=== PATIENT | female | born 1945 | race Caucasian/White ===

== ENCOUNTER 2022-06-24 07:52 | Outpatient (CLI) | payer MEDICARE, OTHER, SELFPAY | END 2022-06-24 07:53 | disposition home or self-care (01) | LOC: AMB 07-05 18:46 | PROVIDERS: PCP Family Medicine; Visit Provider Family Medicine | DX: S79.911A Unspecified injury of right hip, initial encounter (principal); W18.30XA Fall on same level, unspecified, initial encounter; Y92.009 Unspecified place in unspecified non-institutional (private) residence as the place of occurrence of the external cause | CPT/HCPCS: A0425; A0427 ==

== ENCOUNTER 2022-06-24 08:34 | Emergency (ER) | payer MEDICARE, OTHER, SELFPAY ==
[2022-06-24 08:38] VITALS: BP 132/76; PULSE 72; RESP 18; TEMP 36.5; O2SAT 93; BMI 26.3
--- NOTE | 2022-06-24 09:09 | CRLHL7_ITS ---
For Patients: As a result of the Century Cures Act, medical imaging exams and procedure reports are released immediately into your electronic medical record. You may view this report before your referring provider. If you have questions, please contact your health care provider. INDICATION: Fall. TECHNIQUE: Noncontrast CT images acquired through the brain. COMPARISON: None. FINDINGS: Prominence of the ventricles and sulci compatible with mild diffuse cerebral volume loss. No mass effect or midline shift. The healy-white differentiation is maintained. No acute intracranial hemorrhage or pathologic extra-axial fluid collection. Scattered hypoattenuation in the supratentorial white matter, suggestive of mild chronic microvascular ischemic changes. Intracranial atherosclerotic calcifications. The globes are symmetric. The calvarium is intact. Mild mucosal thickening in the visualized paranasal sinuses. The mastoid air cells are clear. IMPRESSION: No acute intracranial hemorrhage or mass effect. Please note that all CT scans at this facility use dose modulation, iterative reconstruction, and/or weight-based dosing when appropriate to reduce radiation dose to as low as reasonably achievable. Dictated by Miguel Ángel Ashby MD @ 06/24/2022 9:42:33 AM (Electronically Signed)
--- NOTE | 2022-06-24 09:09 | CRLHL7_ITS ---
For Patients: As a result of the Century Cures Act, medical imaging exams and procedure reports are released immediately into your electronic medical record. You may view this report before your referring provider. If you have questions, please contact your health care provider. INDICATION: Fell. TECHNIQUE: AP view of the pelvis, 2 images. COMPARISON: None. FINDINGS: Right total hip arthroplasty. Prosthetic components well-seated and aligned. No fracture or dislocation/diastasis. IMPRESSION: Negative for acute traumatic abnormality. Dictated by Sha Aguirre MD @ 06/24/2022 10:04:09 AM (Electronically Signed)
--- NOTE | 2022-06-24 09:10 | ED_ITS ---
HPI - General Adult General Chief complaint: Hip Injury/Pain Stated complaint: hip pain Time Seen by Provider: 06/24/22 08:58 History of Present Illness HPI narrative: This 77-year-old female comes in by ambulance because of a fall that occurred a couple days ago. She fell down onto her buttocks and did hit her head. She did not have loss of consciousness. She has had persistent pain in her buttocks bilaterally since then. She states that she has been able to ambulate with some difficulty while using a walker. She is not on any blood thinners. Related Data Home Medications Medication Instructions Recorded Confirmed albuterol sulfate 90 mcg/actuation inhalation 06/24/22 aerosol inhaler alendronate 70 mg tablet mg PO 06/24/22 levothyroxine 88 mcg tablet mcg 06/24/22 pravastatin 40 mg tablet mg 06/24/22 Previous Rx's Medication Instructions Recorded hydrocodone 5 mg-acetaminophen 325 1 tab PO Q4-6H PRN pain #20 tabs 06/24/22 mg tablet Allergies Allergy/AdvReac Type Severity Reaction Status Date / Time No Known Drug Allergies Allergy Verified 06/24/22 08:42 Review of Systems Status of ROS: Reports: 10 or more systems reviewed and unremarkable except as noted in History and below Narrative: Constitutional: No fevers, no weight gain or loss. Eyes: No discharge. No vision changes. HENT: No congestion, no sore throat, no ear pain. Cardiovascular: No chest pain, no palpitations. Respiratory: No shortness of breath, no wheezes, no cough. Gastrointestinal: No abdominal pain, no vomiting, no diarrhea. Genitourinary: No dysuria, no hematuria. Musculoskeletal: Bilateral buttock pain. Skin: No rashes, no pruritis. Neurological: No dizziness, weakness, sensory change, speech change. Endo/Heme/Allergies: No bruising or bleeding. No polydipsia. Pysch: no suicidality, no anxiety, no insomnia. All other systems reviewed and are negative. PFSH PFSH Social History Smoking Status: Never smoker Do you use any of these nicotine containing products: None How often do you have a drink containing alcohol: never AUDIT-C Alcohol total score: 0 Non-prescribed substance use: denies use Exam Narrative: Exam Narrative: Constitutional: Well-developed, well-nourished, no acute distress. HEENT: Normocephalic, atraumatic. Neck: Normal range of motion. Nontender. Supple. Heart: Regular. No murmurs. Normal rate. Intact distal pulses. Lungs: Clear to auscultation. No chest discomfort. No wheezes, rhonchi, or rales. Abdomen: Normal bowel sounds. Nontender. No rebound tenderness. Genitalia: Deferred. Back: No midline tenderness. Normal range of motion. Extremities: No distinct pain when stressing the pelvis. No pain when log- rolling either leg. She has difficulty raising either leg from the bed due to pain. Skin: Intact. No rash. Warm. No erythema or pallor. Neurologic: No altered sensation. No weakness. Alert and oriented. Psychiatric: No suicidality. No anxiety or depression. No insomnia. Nursing notes and vitals signs are reviewed. Const: Vital Signs, click to edit/add: Vital Signs - 24 hr 06/24/22 08:38 Temperature 97.7 F Pulse Rate [Right Pulse Oximeter] 72 Respiratory Rate 18 Blood Pressure [Ri ght Upper Arm] 132/76 Pulse Oximetry 93 Oxygen Delivery Me thod Room Air Course Vital Signs Vital signs: Initial Vital Signs Temperature 97.7 F 06/24/22 08:38 Temperature Source Temporal Artery Scan 06/24/22 08:38 Pulse Rate 72 06/24/22 08:38 Respiratory Rate 18 06/24/22 08:38 Blood Pressure 132/76 06/24/22 08:38 Blood Pressure Mean 94 06/24/22 08:38 Blood Pressure Position Supine 06/24/22 08:38 Pulse Oximetry 93 06/24/22 08:38 Oxygen Delivery Method 06/24/22 08:38 Vital Signs Temperature 97.7 F 06/24/22 08:38 Pulse Rate 72 06/24/22 08:38 Respiratory Rate 18 06/24/22 08:38 Blood Pressure 132/76 06/24/22 08:38 Pulse Oximetry 93 06/24/22 08:38 Oxygen Delivery Method 06/24/22 08:38 Temperature 97.7 F 06/24/22 08:38 Pulse Rate 72 06/24/22 08:38 Respiratory Rate 18 06/24/22 08:38 Blood Pressure 132/76 06/24/22 08:38 Pulse Oximetry 93 06/24/22 08:38 Oxygen Delivery Method 12/10/22 08:38 Medical Decision Making MDM Narrative Medical decision making narrative: This patient fell a couple days ago and has been able to ambulate but does so with some difficulty and with the assistance of a walker. She does have a right hip replacement. She also did hit her head but did not have loss of consciousness. She is not complaining of headache and does not have any neurologic deficit. CT imaging of the head returns with no acute findings. X- ray imaging of her pelvis also shows no acute fracture or sign of dislocation. Her hip replacement on the right appears to be intact without any compromise. The patient did receive an IV dose of morphine 2 mg. This helped her with pain but she was feeling somewhat lightheaded. Eventually she was able to get up and ambulate to the bathroom with the assistance of a walker. She is okay to return home. She has a walker at home and her can help her as needed. She received a prescription for some tablets of [place]. I advised her to return if not improving or worsening symptoms happen. Imaging Data CT scan - head: Radiologist's impression: No acute intracranial hemorrhage or mass effect. XR Pelvis: Radiologist's impression: Right total hip arthroplasty. Prosthetic components well-seated and aligned. No fracture or dislocation/diastasis. Discharge Plan Discharge Clinical Impression: Contusion of pelvic region Patient Disposition: Home w/ Parent or Adult Condition: Stable Additional Instructions: Take medication as needed and indicated. Follow up with primary physician or return if worsening symptoms happen. Prescriptions: New hydrocodone-acetaminophen 5-325 mg tablet 1 tab PO Q4-6H PRN (Reason: pain) Qty: 20 0RF No Action pravastatin 40 mg tablet Label Comments: Take 1 Tablet (40 mg) by mouth at bedtime. Take with 20 mg tablet for total of 60 mg at bedtime. alendronate 70 mg tablet PO Label Comments: Take 1 Tablet (70 mg) by mouth once a week in the morning. TAKE ON EMPTY STOMACH WITH FULL GLASS OF WATER. DO NOT LIE DOWN FOR 1 HOUR. levothyroxine 88 mcg tablet Label Comments: TAKE ONE TABLET BY MOUTH ONE TIME DAILY albuterol sulfate 90 mcg/actuation HFA aerosol inhaler INHALATION Label Comments: INHALE 2 PUFFS BY MOUTH EVERY 4 HOURS IF NEEDED FOR SHORTNESS OF BREATH Follow Up/Referrals: Ksenia Monaco MD [Primary Care Provider] - Stand Alone Forms: [facility] Info Instructions
[2022-06-24] MEDS: MORPHINE 2 MG/ML inj IVP (09:45)
[2022-06-24 10:00] VITALS: BP 115/98; PULSE 58; RESP 18; O2SAT 95
--- NOTE | 2022-06-24 10:05 | ED.NURSE ---
noted to desat when sleeping. 02 applied.
--- NOTE | 2022-06-24 11:00 | ED.NURSE ---
attempted to stand/ambulate. pt states she is dizzy and hungry. will feed toast and try again
[2022-06-24 11:45] VITALS: PULSE 62; RESP 18; O2SAT 93
== END 2022-06-24 12:09 | disposition home or self-care (01) ==
PROVIDERS: Emergency Provider Emergency Medicine Emergency Medical Services; PCP Family Medicine
DX: S30.0XXA Contusion of lower back and pelvis, initial encounter (principal); W19.XXXA Unspecified fall, initial encounter
CPT/HCPCS: 70450; 72170; 96374; 99284; 99285; J1170; J2270

== ENCOUNTER 2022-09-05 08:30 | Outpatient (RCR) | payer MEDICARE, OTHER, SELFPAY | END 2022-09-22 15:25 | disposition home or self-care (01) | PROVIDERS: PCP Family Medicine; Visit Provider Podiatrist | DX: Q66.00 Congenital talipes equinovarus, unspecified foot (principal); Z51.89 Encounter for other specified aftercare | CPT/HCPCS: 97110; 97112; 97140; 97162 ==

== ENCOUNTER 2023-04-21 08:05 | Emergency (ER) | payer MEDICARE, OTHER, SELFPAY ==
[2023-04-21 08:20] VITALS: BP 132/66; PULSE 69; RESP 20; TEMP 36.3; O2SAT 92; BMI 26.3
--- NOTE | 2023-04-21 08:35 | ED.GENADULT ---
HPI - General Adult General Time Seen by Provider: 08:35 Date Seen: 04/21/23 Chief complaint: Extremity Pain/Injury, Lower Stated complaint: pain L leg, trouble walking Time Seen by Provider: 04/21/23 08:35 Source: patient and RN notes reviewed Mode of arrival: ambulatory Limitations: no limitations History of Present Illness HPI narrative: This 78-year-old female is coming in with significant pain behind the left knee. This is to the point where she cannot walk, has difficulty straightening or fully flexing the knee. This started last night when she attempted to get up from sitting at dinner. They were out to dinner and she just went to get up and had severe pain in the knee. She endorses some underlying pain in both calfs periodically, more in the muscles. This was different, she has never felt anything like this. She has not had any associated chest pain or respiratory symptoms such as shortness of breath. No fevers, no trauma. She points to the pain being isolated behind the left knee. She is not aware of any arthritis in the knee. She has not really had any baseline pain in this knee. This just hit suddenly when attempting to stand last night. She could find a position of comfort with the leg elevated in pillows supporting behind the left knee and calf. No numbness tingling. She did come in on crutches. Related Data Home Medications Medication Instructions Recorded Confirmed albuterol sulfate 90 mcg/actuation inhalation 06/24/22 aerosol inhaler alendronate 70 mg tablet mg PO 06/24/22 levothyroxine 88 mcg tablet mcg 06/24/22 pravastatin 40 mg tablet mg 06/24/22 Previous Rx's Medication Instructions Recorded hydrocodone 5 mg-acetaminophen 325 1 tab PO Q4-6H PRN pain #20 tabs 06/24/22 mg tablet Allergies Allergy/AdvReac Type Severity Reaction Status Date / Time No Known Drug Allergies Allergy Verified 06/24/22 08:42 Review of Systems Narrative: As per HPI. PFS PFS Social History Smoking Status: Never smoker Do you use any of these nicotine containing products: None Second hand tobacco smoke exposure: No How often do you have a drink containing alcohol: monthly or less How many standard drinks containing alcohol do you have on a typical day: 1 or 2 How often do you have six or more drinks on one occasion: Never AUDIT-C Alcohol total score: 1 Non-prescribed substance use: denies use service: No Exam Const: Vital Signs, click to edit/add: Vital Signs - 24 hr 04/21/23 08:20 Temperature 97.4 F L Pulse Rate [Pulse Oximeter] 69 Respiratory Rate 20 Blood Pressure [Ri ght Upper Arm] 132/66 Pulse Oximetry 92 Oxygen Delivery Me thod Room Air This 78-year-old female is seen in exam room 3, is lying in the bed with pillows supporting her left lower extremity behind the knee and calf, elevating it. She is alert, interactive, no apparent distress. Able to speak in complete sentences, face atraumatic, sclera clear, conjugate gaze. Lungs are clear anteriorly, no tachypnea or respiratory symptoms noted. CV regular rate and rhythm no murmur. Both lower extremities are visualize, no edema, no erythema. She has ability to straight leg raise this left leg. Knee joint palpates intact and is nontender, feel no effusion. Patella is in alignment, she has pain if I attempt to fully extend or with flexion. She feels it more posteriorly in the popliteal fossa. I do not feel popliteal fossa low mass on palpation and she is not necessarily tender when I palpate the popliteal fossa. Calves are nontender bilaterally. Documenting provider has reviewed patient's vital signs: yes Course Course ED Course: Reviewed with patient things such as Julian's cyst, atraumatic cartilage tears that can happen with aging in the knee. We will proceed with venous ultrasound, x-ray of this left knee. This certainly seems to be something within the musculoskeletal architecture of the knee or within the popliteal fossa. This does not seem to be referred process based on my examination. At this time she is comfortable, does not need anything for pain if she has is resting and not trying to ambulate. Reevaluation(s) Time of Reevaluation #1: 10:45 Reevaluation #1: Initially was in to talk to patient about her results. Was able to tell her the ultrasound was negative for DVT, x-ray showing significant medial joint arthritis. It is my a presumption that she probably has a degenerative cartilage tear that is causing acute pain. I did have to leave to take a phone call for another patient from a customer service and sales consultant. I did go back right away after that. We are going to put a knee immobilizer on her and see if she ambulates better with it. Staff did already have this in place, it does bother her resting posteriorly to have the leg straight in the knee immobilizer. We do not have a hinged knee immobilizer here. We are going to see if the knee immobilizer helps her with weight-bearing at all, if it does not, will just do crutches and have her follow up with Orthopedics. If the knee immobilizer does help with ambulation, will use the knee immobilizer when she is up and ambulating but otherwise can take off when she is resting. Time of Reevaluation #2: 10:56 Reevaluation #2: Unfortunately the knee immobilizer causes patient more pain than she was having with ambulation. Will have her just use crutches. Vital Signs Vital signs: Initial Vital Signs Temperature 97.4 F L 04/21/23 08:20 Temperature Source Temporal Artery Scan 04/21/23 08:20 Pulse Rate 69 04/21/23 08:20 Pulse Rhythm Regular 04/21/23 08:20 Respiratory Rate 20 04/21/23 08:20 Blood Pressure 132/66 04/21/23 08:20 Blood Pressure Mean 88 04/21/23 08:20 Blood Pressure Position Supine 04/21/23 08:20 Pulse Oximetry 92 04/21/23 08:20 Oxygen Delivery Method Room Air 04/21/23 08:20 Vital Signs Temperature 97.4 F L 04/21/23 08:20 Pulse Rate 69 04/21/23 08:20 Respiratory Rate 20 04/21/23 08:20 Blood Pressure 132/66 04/21/23 08:20 Pulse Oximetry 92 04/21/23 08:20 Oxygen Delivery Method Room Air 04/21/23 08:20 Temperature 97.4 F L 04/21/23 08:20 Pulse Rate 69 04/21/23 08:20 Respiratory Rate 20 04/21/23 08:20 Blood Pressure 132/66 04/21/23 08:20 Pulse Oximetry 92 04/21/23 08:20 Oxygen Delivery Method Room Air 04/21/23 08:20 Medical Decision Making Imaging Data XR left knee: Attestation: I have reviewed the pertinent imaging results. My impression: I see spurring off the medial joint and significant medial joint space narrowing on my preliminary review. Radiologist's impression: Patient: [facility] Facility:?[facility] Patient ID:?[id number] Site Patient ID:?[id number]. Site :?[id number] Study:?XRay Knee Left -04/21/2023 9:01:23 AM Ordering Physician:?Meena Ulrich Final Report: Indication: Knee pain. Technique: Left knee 2 views. Comparison: None. Findings: Bones: Alignment is normal. No fractures or bone lesions. Joint spaces: Moderate to severe knee joint arthritis predominantly in the lateral compartment. Arthritis also present in the patellofemoral joint. No significant joint effusion. No other finding to explain pain. Soft tissues: Unremarkable. Dictated by Kiel Coon MD @ 04/21/2023 9:09:21 AM (Electronic Signature) FINDINGS: The report should state that the arthritis is in the medial compartment, not lateral. Dictated by Kiel Coon MD @ Apr 21 2023 10:16AM (Electronic Signature) Venous US: Attestation: I have reviewed the pertinent imaging results. Radiologist's impression: Patient: [facility] Facility:?[facility] Patient ID:?[id number] Site Patient ID:?[id number]. Site :?[id number] Study:?US Extremity Left LEV LT-04/21/2023 10:06:55 AM Ordering Physician:?Meena Ulrich Final Report: INDICATION: Leg pain and swelling. TECHNIQUE: Ultrasound venous duplex lower left extremity. Compression venous exam was performed using healy-scale, color Doppler, and spectral Doppler analysis. COMPARISON: None. FINDINGS: Deep veins: Sonographic imaging demonstrates the left common femoral, deep femoral, superficial femoral, popliteal, posterior tibial, peroneal and the contralateral right common femoral veins to be fully compressible with normal color Doppler blood flow. Superficial veins: Greater saphenous vein is fully compressible. No popliteal cyst. IMPRESSION: Normal left lower extremity venous ultrasound, no sign of deep venous thrombosis. Dictated by Kiel Coon MD @ 04/21/2023 10:11:14 AM (Electronic Signature) Critical Care Time Critical Care Time Critical Care Time: No Discharge Plan Discharge Clinical Impression: Acute pain of left knee, Osteoarthritis of left knee Patient Disposition: Home, Self-Care Condition: Stable Instructions: Osteoarthritis (ED), Knee Pain (ED) Additional Instructions: Recommend Tylenol 1000 mg 3 times a day for pain. Use crutches for assistance with ambulation to minimize pain. You will need to follow up with Orthopedics, call [phone] on Sunday to get scheduled for follow-up. Activity Level: Activity as Tolerated Prescriptions: No Action pravastatin 40 mg tablet Patient Comments: Take 1 Tablet (40 mg) by mouth at bedtime. Take with 20 mg tablet for total of 60 mg at bedtime. alendronate 70 mg tablet PO Patient Comments: Take 1 Tablet (70 mg) by mouth once a week in the morning. TAKE ON EMPTY STOMACH WITH FULL GLASS OF WATER. DO NOT LIE DOWN FOR 1 HOUR. levothyroxine 88 mcg tablet Patient Comments: TAKE ONE TABLET BY MOUTH ONE TIME DAILY albuterol sulfate 90 mcg/actuation HFA aerosol inhaler INHALATION Patient Comments: INHALE 2 PUFFS BY MOUTH EVERY 4 HOURS IF NEEDED FOR SHORTNESS OF BREATH hydrocodone-acetaminophen 5-325 mg tablet 1 tab PO Q4-6H PRN (Reason: pain) Qty: 20 0RF Follow Up/Referrals: Ksenia Monaco MD [Primary Care Provider] - Stand Alone Forms: [facility] [employer] Info Instructions
--- NOTE | 2023-04-21 08:42 | CRLHL7_ITS ---
For Patients: As a result of the Century Cures Act, medical imaging exams and procedure reports are released immediately into your electronic medical record. You may view this report before your referring provider. If you have questions, please contact your health care provider. INDICATION: Leg pain and swelling. TECHNIQUE: Ultrasound venous duplex lower left extremity. Compression venous exam was performed using healy-scale, color Doppler, and spectral Doppler analysis. COMPARISON: None. FINDINGS: Deep veins: Sonographic imaging demonstrates the left common femoral, deep femoral, superficial femoral, popliteal, posterior tibial, peroneal and the contralateral right common femoral veins to be fully compressible with normal color Doppler blood flow. Superficial veins: Greater saphenous vein is fully compressible. No popliteal cyst. IMPRESSION: Normal left lower extremity venous ultrasound, no sign of deep venous thrombosis. Dictated by Kiel Coon MD @ 04/21/2023 10:11:14 AM (Electronically Signed)
--- NOTE | 2023-04-21 08:42 | CRLHL7_ITS ---
For Patients: As a result of the Cures Act, medical imaging exams and procedure reports are released immediately into your electronic medical record. You may view this report before your referring provider. If you have questions, please contact your health care provider. Indication: Knee pain. Technique: Left knee 2 views. Comparison: None. Findings: Bones: Alignment is normal. No fractures or bone lesions. Joint spaces: Moderate to severe knee joint arthritis predominantly in the lateral compartment. Arthritis also present in the patellofemoral joint. No significant joint effusion. No other finding to explain pain. Soft tissues: Unremarkable. Dictated by Kiel Coon MD @ 04/21/2023 9:09:21 AM (Electronically Signed)
--- NOTE | 2023-04-21 11:18 | ED.NURSE ---
Using home crutches, tolerates well. Crutch use education provided, per Pt request.
[2023-04-21 11:20] VITALS: BP 132/66; PULSE 69; RESP 20; TEMP 36.3
== END 2023-04-21 11:21 | disposition home or self-care (01) ==
PROVIDERS: Emergency Provider Family Medicine; PCP Family Medicine
DX: M17.12 Unilateral primary osteoarthritis, left knee (principal); M25.562 Pain in left knee
CPT/HCPCS: 73560; 93971; 99284

== ENCOUNTER 2023-05-04 08:52 | Outpatient (CLI) | payer MEDICARE, OTHER, SELFPAY ==
--- NOTE | 2023-05-04 09:15 | MR_ITS ---
[address] [address] Phone:?[phone] Fax:?[phone] Referring Physician Information: Tono Aggarwal [address] [facility] [address] Phone:?[phone] Fax:?[phone] Patient:Jose Alberts D.O.B:?1945 Sex:?Female Phone:?[phone] [facility] MRN:?[id number] Exam Date:?05/04/2023 EXAM: MRI of the LEFT KNEE, without contrast CLINICAL INFORMATION: Female, 78 years old, with left knee pain. INDICATION: Evaluate for lateral meniscal tear. PRIOR SURGERY: None reported. PLAIN FILMS: None available. COMPARISONS: No prior MRIs available. TECHNICAL INFORMATION: Using a 1.5T MR scanner and a localizing surface coil: sagittals: PD, PDFS coronals: PD, STIR axials: PD, T2FS SEDATION: None CONTRAST: None FINDINGS: Image quality is limited by patient motion artifact, which is present on every sequence. Knee joint: Effusion: Moderate left knee effusion. Popliteal cyst: Tiny, unruptured popliteal (Julian's) cyst. Loose bodies: None. Subcutaneous and extra-articular soft tissues: Unremarkable. Ligaments: ACL: Intact ACL anteromedial and posterolateral bundles, without sprain or tear. PCL: Intact PCL, without acute or chronic injury. MCL: Intact MCL superficial and deep layers, without injury. LCL: Intact LCL, without injury. Posterolateral corner: No posterolateral corner soft tissue injury. Popliteus, biceps femoris, iliotibial band, popliteofibular ligament and lateral gastrocnemius are intact. Posteromedial corner: No posteromedial corner soft tissue injury. Semimembranosus, pes anserine tendons and posterior oblique ligament are without injury, tendinopathy or bursitis. Extensor mechanism: Patellar tendon: Intact, without tendinopathy. Quadriceps tendon: Intact, without tendinopathy. Retinacula: Medial and lateral retinacula are intact. Fat pads: Unremarkable infrapatellar Hoffa's, quadriceps and prefemoral fat pads. Medial compartment: Medial meniscus: Complex degenerative tearing of the posterior horn and body of the medial meniscus measures 3.2 cm (sagittal PDFS series 12 images 6-13 and coronal STIR series 4 images 20-24). Meniscal extrusion measures 8 mm. A parameniscal cyst. Medial femoral condyle & tibial plateau: Broad-based grade III/IV chondromalacia throughout the central, weightbearing aspect of the medial compartment, with moderate marginal osteophytosis. Lateral compartment: Lateral meniscus: Apical free edge tearing is present throughout nearly the entire lateral meniscus with poorly defined intermediate grade partial tearing of the lateral meniscal posterior root (sagittal PDFS series 12 images 17-24). Lateral femoral condyle & tibial plateau: Broad-based grade III chondromalacia throughout the central, weightbearing aspect of the lateral compartment, with mild/moderate marginal osteophytosis. Patellofemoral joint: Patella: Generalized grade III/IV chondromalacia of the patella, with moderate marginal osteophytosis. Trochlea: Generalized grade III/IV chondromalacia of the trochlea, with mild marginal osteophytosis. Proximal tibiofibular joint: Unremarkable, without evidence of ligament sprain injury, joint effusion or adjacent marrow edema. Bones: No stress/occult fractures or other marrow edema/pathology. IMPRESSION: Image quality is limited by patient motion artifact. 1. Complex degenerative tearing of the posterior horn and body of the medial meniscus measuring 3.2 cm, with 8 mm of meniscal extrusion. 2. Apical free edge tearing throughout nearly the entire lateral meniscus with poorly defined intermediate grade tearing of the lateral meniscal posterior root. 3. Tricompartmental osteoarthritis of the left knee: -Moderate-advanced osteoarthritis of the medial and patellofemoral compartments. -Mild-moderate osteoarthritis of the lateral compartment. 4. Moderate knee joint effusion with a tiny, unruptured popliteal (Julian's) cyst. No definite evidence of an intra-articular body. 5. No cruciate or collateral ligament sprain/tear. 6. No osseous or myotendinous abnormality. BC Electronically signed on 05/04/2023 11:00:00 AM by Erich Longo M.D.
== END 2023-05-04 08:53 | disposition home or self-care (01) ==
LOC: MRI 08:53
PROVIDERS: PCP Family Medicine; Visit Provider Physician Assistant
DX: M25.562 Pain in left knee (principal); S83.242A Other tear of medial meniscus, current injury, left knee, initial encounter; M17.12 Unilateral primary osteoarthritis, left knee; M25.462 Effusion, left knee
CPT/HCPCS: 73721

== ENCOUNTER 2023-05-16 09:45 | Outpatient (RCR) | payer MEDICARE, OTHER, SELFPAY | END 2023-09-13 23:59 | disposition home or self-care (01) | PROVIDERS: PCP Family Medicine; Visit Provider Family Medicine | DX: G57.03 Lesion of sciatic nerve, bilateral lower limbs (principal); M25.552 Pain in left hip; M25.551 Pain in right hip; R29.898 Other symptoms and signs involving the musculoskeletal system; R26.9 Unspecified abnormalities of gait and mobility; R26.81 Unsteadiness on feet; Z51.89 Encounter for other specified aftercare | CPT/HCPCS: 97110; 97140; 97162 ==

== ENCOUNTER 2023-05-23 15:59 | Emergency (ER) | payer MEDICARE, OTHER, SELFPAY ==
[2023-05-23] VITALS (8 sets, daily range): BP systolic 124–156; BP diastolic 76–102; PULSE 64–84; RESP 16; TEMP 36.6; O2SAT 92–98; BMI 26.4
--- NOTE | 2023-05-23 16:31 | ED.GENADULT ---
HPI - General Adult General Date Seen: 05/23/23 Chief complaint: Unspecified Complaint, Adult Stated complaint: knee pain Time Seen by Provider: 05/23/23 16:30 History of Present Illness HPI narrative: Very pleasant 78-year-old female presenting to the ER today with her for evaluation of 5 distinct spells that occurred today. She has a past medical history including hypothyroidism (on Synthroid), dyslipidemia (on pravastatin), osteoporosis (alendronate) but otherwise generally healthy. She has had 5 episodes today where her body without warning will have a odd shaky, ?crank Ali? sensation that extends from her knees all the way up to her head. It does not really start in her knees but it is just in that distribution (head to knees). She feels a bit shaky and wobbly. It affects both sides similarly. When the episodes happen she gets the sensation that she might be getting dizzy as if she is about to fall. She has not fallen. She does not really feel wobbly or unsteady or spinning or vertigo. Nor does she have darkening of her vision, seeing stars, blurry vision, or diplopia. These episodes are not associated with any headache. No chest pain. No palpitations. There was no prodrome. Also no lingering affects after each episode. Each episode lasts about about 3 seconds. All 5 of them have occurred when she standing up. They do not seem to occur when she is sitting down. Nothing has changed with her health for medications lately. She does have a chronic mild cough since last summer when she had COVID. She coughs a few times every day. Cough is not better or worse lately. No shortness of breath. No chest pain. No recent weight gain or loss. No swelling in her legs. No palpitations. No fever chills. No abdominal pain. No nausea or vomiting. No bloody or black stools. No urinary symptoms. She does note that she had a trip and fall and landed on her back about 11 months ago last June. Ever since then she has had some trouble with low back and posterior pelvis pain and pain in both of her shins. This is been lingering since her fall. She also notes that beginning at after her fall last June she was having loose frequent stools for many months. That is been getting better with the stools are more formed now for the past few months but still fairly frequent, every couple of hours. She describes passing fairly long brown formed stools. Her diarrhea has not changed at all lately. Her appetite been normal. She has been eating and drinking normally. She was actually preparing to make left set today for the holiday season. She is on medications and has not changed them lately. She is not sure what the names are but she sees Dr. Monaco and thinks list will be in the computer. Related Data Home Medications Medication Instructions Recorded Confirmed alendronate 70 mg tablet mg PO 06/24/22 05/07/23 levothyroxine 88 mcg tablet mcg 06/24/22 05/07/23 pravastatin 40 mg tablet mg 06/24/22 05/07/23 Allergies Allergy/AdvReac Type Severity Reaction Status Date / Time No Known Drug Allergies Allergy Unverified 05/07/23 13:53 [facility] Medical History (Updated 05/23/23 @ 19:08 by Jt García MD) Osteoarthritis of left knee ?M17.12 - Unilateral primary osteoarthritis, left knee (ICD-10) Elevated cholesterol ?E78.00 - Pure hypercholesterolemia, unspecified (ICD-10) Hypothyroid ?E03.9 - Hypothyroidism, unspecified (ICD-10) Fracture of right distal radius ?S52.501A - Unspecified fracture of the lower end of right radius, initial encounter for closed fracture (ICD-10) Surgical History (Updated 04/23/23 @ 08:24 by Cheyenne Ordaz ~ ALARM SECURITY OR SURVEILLANCE MONITOR, ALARM SECURITY OR SURVEILLANCE MONITOR) Status post total hip replacement, right ?Z96.641 - Presence of right artificial hip joint (ICD-10) History of open reduction and internal fixation (ORIF) procedure (01/17/13) ?Z98.890 - Other specified postprocedural states (ICD-10) Social History Smoking Status: Never smoker Do you use any of these nicotine containing products: None Second hand tobacco smoke exposure: No How often do you have a drink containing alcohol: monthly or less How many standard drinks containing alcohol do you have on a typical day: 1 or 2 How often do you have six or more drinks on one occasion: Never AUDIT-C Alcohol total score: 1 Non-prescribed substance use: denies use service: No Exam Narrative: Exam Narrative: Constitutional: Appears well-developed and well-nourished. Alert. Conversant. Non toxic. HENT: Head: Atraumatic. Nose: Nose normal. Mouth/Throat: Oral mucosa is clear and moist. no trismus. Pharynx normal. Tonsils symmetric. No tonsillar enlargement, erythema, or exudate. Eyes: Conjunctivae normal. EOM normal. Pupils equal, round, and reactive to light. No scleral icterus. Neck: Normal range of motion. Neck supple. No tracheal deviation present. No JVD. No thyromegaly. Cardiovascular: Normal rate, regular rhythm. No gallop. No friction rub. No murmur heard. Symmetric radial artery pulses Pulmonary/Chest: Effort normal. No stridor. No respiratory distress. No wheezes. No rales. No rhonchi . No tenderness. Abdominal: Soft. Bowel sounds normal. No distension. No mass. No tenderness. No rebound. No guarding. Musculoskeletal: RUE: Normal range of motion. No tenderness. No deformity LUE: Normal range of motion. No tenderness. No deformity RLE: Normal range of motion. No edema. No tenderness. No deformity LLE: Normal range of motion. No edema. No tenderness. No deformity Lymph: No cervical adenopathy. Neurological: Mental status normal. Attention normal. Alert and oriented x3. GCS 15. Memory normal. Speech fluent. Cognition normal. Cranial Nerves intact II-XII except I did not formally test gag or visual acuity. EOMI. Palate elevates symmetrically and tongue protrudes in the midline. Strength: 5/5 trapezius on the right and left 5/5 deltoid on the right and left 5/5 biceps on the right and left 5/5 triceps on the right and left 5/5 geospatial technician on the right and left 5/5 thumb opposition on the right and left 5/5 finger abduction on the right and left 5/5 hip flexors (L3) on the right and left 5/5 quadriceps (L4) on the right and left 5/5 tibialis anterior on the right and left 5/5 EHL (L5) on the right and left 5/5 gastrocnemius (S1) on the right and left 5/5 hamstring on the right and left Sensation intact to light touch in both upper extremities (C4-T1) Sensation intact to light touch in Both lower extremities (L4-S1). Finger to nose and coordination normal. Gait normal. Skin: Skin is warm and dry. No rash noted. No pallor. Normal capillary refill. Psychiatric: Normal mood. Normal affect. Very polite. Smiling. Const: Vital Signs, click to edit/add: Vital Signs - 24 hr 05/23/23 16:06 05/23/23 16:49 05/23/23 17:00 Temperature 98 F Pulse Rate 67 67 Pulse Rate [Pulse Oximeter] 84 Respiratory Rate 16 Blood Pressure Blood Pressure [Ri ght Upper Arm] 124/76 Pulse Oximetry 98 92 93 Oxygen Delivery Me thod Room Air 05/23/23 17:02 05/23/23 17:15 05/23/23 17:30 Temperature Pulse Rate 65 64 64 Pulse Rate [Pulse Oximeter] Respiratory Rate Blood Pressure 152/78 H Blood Pressure [Ri ght Upper Arm] Pulse Oximetry 93 92 93 Oxygen Delivery Me thod 05/23/23 17:33 05/23/23 17:45 Temperature Pulse Rate 67 64 Pulse Rate [Pulse Oximeter] Respiratory Rate Blood Pressure 156/102 H Blood Pressure [Ri ght Upper Arm] Pulse Oximetry 97 96 Oxygen Delivery Me thod Course Course ED Course: Recheck-no recurrent symptoms. Vital stable. Reevaluation(s) Reevaluation #1: Recheck-no recurrent symptoms. We had the patient stand at the bedside for while because her previous spells occurred while she is standing. No recurrent symptoms. Reevaluation #2: Recheck-updated patient has been about her normal lab workup. Still no recurrent symptoms. They feel comfortable discharging to home and will follow up outpatient to consider outpatient heart monitor. Vital Signs Vital signs: Initial Vital Signs Temperature 98 F 05/23/23 16:06 Temperature Source Temporal Artery Scan 05/23/23 16:06 Pulse Rate 84 05/23/23 16:06 Respiratory Rate 16 05/23/23 16:06 Blood Pressure 124/76 05/23/23 16:06 Blood Pressure Mean 92 05/23/23 16:06 Pulse Oximetry 98 05/23/23 16:06 Oxygen Delivery Method Room Air 05/23/23 16:06 Vital Signs Temperature 98 F 05/23/23 16:06 Pulse Rate 84 05/23/23 16:06 Respiratory Rate 16 05/23/23 16:06 Blood Pressure 124/76 05/23/23 16:06 Pulse Oximetry 98 05/23/23 16:06 Oxygen Delivery Method Room Air 05/23/23 16:06 Temperature 98 F 05/23/23 16:06 Pulse Rate 64 05/23/23 17:45 Respiratory Rate 16 05/23/23 16:06 Blood Pressure 156/102 H 05/23/23 17:33 Pulse Oximetry 96 05/23/23 17:45 Oxygen Delivery Method Room Air 05/23/23 16:06 Medical Decision Making MDM Narrative Medical decision making narrative: This patient presents for evaluation of 5 distinct brief episodes where her body felt shaky and she was briefly lightheaded that occurred today. Differential is quite broad but 1 concern is for possible intermittent brief cardiac event such as ectopy or arrhythmia.. Initial ECG shows normal sinus rhythm and no dysrhythmogenic abnormality such as WPW, prolonged QT, Brugada syndrome, and no ischemia. groundwater monitoring technician while the patient here in the ER showed no dysrhythmia or ectopy. A broad differential diagnosis was considered including SVT, Atrial fibrillation, ventricular arrhythmia, thyroid disease, acute electrolyte abnormality, drugs/medications, caffeine intake or other stimulants, medication side effect, anemia, heart disease, PE, among others. The workup and exam here in ED shows not specific cause of the patient's palpitations, and no risks factors to warrant admission. Clinical judgement suggests that supportive outpatient management is indicated. Recommend outpatient follow-up with primary care within 1-2 days to arrange outpatient Holter monitor. Precautions for return to the ER reviewed. Questions answered. . Lab Data Labs: Lab Results 05/23/23 05/23/23 Range/Units 16:36 16:48 WBC 6.91 (4.50-11.00) K/uL RBC 4.90 (4.00-5.20) m/uL Hgb 14.9 (12.0-16.0) gm/dL Hct 44.8 (33.0-51.0) % MCV 91 (80-100) fL MCH 30 (26-34) pg MCHC 33 (32-36) gm/dL RDW Coeff of Ladi 14.5 (11.5-15.5) % Plt Count 241 (140-440) K/uL Neut % (Auto) 57.4 (42.0-72.0) % Lymph % (Auto) 28.4 (20-44) % [place] % (Auto) 10.9 (0.0-11.0) % Eos % (Auto) 2.5 (0.0-7.0) % Baso % (Auto) 0.7 (0.0-3.0) % Neut # (Auto) 3.97 (1.7-7.0) K/uL Lymph # (Auto) 1.96 (0.90-2.90) K/uL [place] # (Auto) 0.80 (0.00-0.90) K/UL Eos # (Auto) 0.17 (0.00-0.50) K/uL Baso # (Auto) 0.05 (0.00-0.30) K/uL Abs Immat Gran (auto) 0.01 (0.00-0.30) K/uL Imm/Tot Granulo (auto) 0.1 % Sodium 138 (135-149) mmol/L Potassium 4.0 (3.6-5.1) mmol/L Chloride 104 (96-114) mmol/L Carbon Dioxide 29 (20-32) mmol/L Anion Gap 5 L (7-15) mEq/L BUN 20 (7-30) mg/dL Creatinine 0.7 (0.5-1.5) mg/dL Estimated Creat Clear 39.39 Estimated GFR 88 ml/min Glucose 105 (60-115) mg/dL Calcium 9.4 (8.4-10.6) mg/dL Total Bilirubin 0.5 (0.1-1.5) mg/dL AST 25 (12-35) U/L ALT 18 (4-35) U/L Alkaline Phosphatase 43 (40-150) U/L Troponin I < 0.01 L (0.01-0.04) ng/mL Total Protein 7.7 (6.0-8.3) g/dL Albumin 4.6 (3.3-5.0) g/dL TSH 1.660 (0.270-4.200) uIU/mL Urine Color Yellow (Yellow) Urine Appearance Clear (Clear) Urine pH 7.0 (5.0-8.5) Ur Specific [place] 1.015 (1.000-1.030) Urine Protein Negative (Negative) Urine Glucose (UA) Negative (Negative) Urine Ketones Negative (Negative) Urine Blood Negative (Negative) Urine Nitrite Negative (Negative) Urine Bilirubin Negative (Negative) Urine Urobilinogen 0.2 (0.2-1.0) Ur Leukocyte Esterase Negative (Negative) Urine RBC 0-2 (0-2) Urine WBC 0-2 (0-5) Ur Squamous Epith Cells Few (None-Few) Urine Bacteria None (None) ECG Data Attestation: I personally reviewed and interpreted this ECG as follows: Interpretation: Normal sinus rhythm rate 69 [place] 170. No delta waves. QRS axis normal axis. Wide QRS. QRS duration 140. Left bundle branch block. ST segment/T wave: No ST segment elevation or depression. QTc: 460 Discharge Plan Discharge Clinical Impression: Dizzy spells Patient Disposition: Home, Self-Care Condition: Stable Instructions: Lightheadedness (ED) Additional Instructions: If you have any worsening symptoms such as increasing number of spells, spells that last longer, fainting, chest pain, trouble breathing, heart palpitations, or any other new or concerning symptoms please come back to the ER right away. Please recheck with your regular doctor within the next 1-2 days to arrange in at home heart monitor. Remember, please come back to the ER right away if you are having any trouble. Prescriptions: No Action pravastatin 40 mg tablet Patient Comments: Take 1 Tablet (40 mg) by mouth at bedtime. Take with 20 mg tablet for total of 60 mg at bedtime. alendronate 70 mg tablet PO Patient Comments: Take 1 Tablet (70 mg) by mouth once a week in the morning. TAKE ON EMPTY STOMACH WITH FULL GLASS OF WATER. DO NOT LIE DOWN FOR 1 HOUR. levothyroxine 88 mcg tablet Patient Comments: TAKE ONE TABLET BY MOUTH ONE TIME DAILY Follow Up/Referrals: Ksenia Monaco MD [Primary Care Provider] - Stand Alone Forms: Next Safety Info Instructions
[2023-05-23 16:56] LABS: Basophils Absolute Auto 0.05 K/uL (0.00-0.30); Basophils Percent Auto 0.7 % (0.0-3.0); Eosinophils Absolute Auto 0.17 K/uL (0.00-0.50); Eosinophils Percent Auto 2.5 % (0.0-7.0); Hematocrit 44.8 % (33.0-51.0); Hemoglobin* 14.9 gm/dL (12.0-16.0); Immature Granulocytes Abs Auto 0.01 K/uL (0.00-0.30); Immature Granulocytes Pct Auto 0.1 %; Lymphocytes Absolute Auto 1.96 K/uL (0.90-2.90); Lymphocytes Percent Auto 28.4 % (20-44); Mean Corpuscular HGB Conc 33 gm/dL (32-36); Mean Corpuscular Hemoglobin 30 pg (26-34); Mean Corpuscular Volume 91 fL (80-100); Monocytes Percent Auto 10.9 % (0.0-11.0); Neutrophils Absolute Auto 3.97 K/uL (1.7-7.0); Neutrophils Percent Auto 57.4 % (42.0-72.0); Platelet Count* 241 K/uL (140-440); RDW Coefficient of Variation % 14.5 % (11.5-15.5); White Blood Count* 6.91 K/uL (4.50-11.00)
[2023-05-23 16:57] LABS: Slide Review Reflex No
[2023-05-23 17:11] LABS: Albumin* 4.6 g/dL (3.3-5.0)
[2023-05-23 17:12] LABS: Chloride* 104 mmol/L (96-114); Sodium* 138 mmol/L (135-149)
[2023-05-23 17:14] LABS: Bilirubin Total* 0.5 mg/dL (0.1-1.5); Creatinine* 0.7 mg/dL (0.5-1.5); Est. Creatinine Clearance* 39.39; Estimated Glomerular Filt Rate 88 ml/min
[2023-05-23 17:15] LABS: Alanine Aminotransferase* 18 U/L (4-35); Alkaline Phosphatase* 43 U/L (40-150); Anion Gap 5 mEq/L (7-15); Aspartate Amino Transferase* 25 U/L (12-35); Blood Urea Nitrogen* 20 mg/dL (7-30); Calcium* 9.4 mg/dL (8.4-10.6); Carbon Dioxide* 29 mmol/L (20-32); Glucose* 105 mg/dL (60-115); Total Protein* 7.7 g/dL (6.0-8.3)
[2023-05-23 17:28] LABS: Troponin I* < 0.01 ng/mL (0.01-0.04)
[2023-05-23 18:29] LABS: Appearance Urine Clear (Clear); Bilirubin Urine Negative (Negative); Blood Urine Negative (Negative); Color Urine Yellow (Yellow); Glucose Urine Negative (Negative); Ketones Urine Negative (Negative); Leukocyte Esterase Urine Negative (Negative); Nitrite Urine Negative (Negative); Protein Urine Negative (Negative); Specific Gravity Urine 1.015 (1.000-1.030); Urobilinogen Urine 0.2 (0.2-1.0)
[2023-05-23 18:50] LABS: RBC Urine 0-2 (0-2); Squamous Epithelial Cell Urine Few (None-Few); WBC Urine 0-2 (0-5)
== END 2023-05-23 19:16 | disposition home or self-care (01) ==
PROVIDERS: Emergency Provider Emergency Medicine; PCP Family Medicine
DX: R42 Dizziness and giddiness (principal)
CPT/HCPCS: 36415; 80048; 80053; 81001; 84443; 84484; 85025; 93005; 99283; 99284

== ENCOUNTER 2023-07-12 07:47 | Outpatient (RCR) | payer MEDICARE, OTHER, SELFPAY | END 2023-10-19 17:12 | disposition home or self-care (01) | PROVIDERS: PCP Family Medicine; Visit Provider Family Medicine | DX: S86.819A Strain of other muscle(s) and tendon(s) at lower leg level, unspecified leg, initial encounter (principal); Z87.828 Personal history of other (healed) physical injury and trauma; M25.562 Pain in left knee; M62.81 Muscle weakness (generalized); M23.309 Other meniscus derangements, unspecified meniscus, unspecified knee; Z51.89 Encounter for other specified aftercare | CPT/HCPCS: 97110; 97162 ==

== ENCOUNTER 2024-03-22 12:32 | Emergency (ER) | payer MEDICARE, OTHER, SELFPAY ==
[2024-03-22] VITALS (13 sets, daily range): BP systolic 163; BP diastolic 83; PULSE 56–72; RESP 16–18; TEMP 36.1; O2SAT 90–99; BMI 26.3
--- NOTE | 2024-03-22 13:09 | CRLHL7_ITS ---
For Patients: As a result of the Century Cures Act, medical imaging exams and procedure reports are released immediately into your electronic medical record. You may view this report before your referring provider. If you have questions, please contact your health care provider. INDICATION: Chest pain. TECHNIQUE: Chest 2 views. COMPARISON: None. FINDINGS: No pneumothorax or pleural effusion. Lungs are clear. Cardiac and mediastinal contours are within normal limits. Upper abdomen and osseous structures as imaged show no acute abnormality. IMPRESSION: No evidence of acute cardiopulmonary disease. Dictated by Humberto Verde MD @ 03/22/2024 2:15:52 PM (Electronically Signed)
--- NOTE | 2024-03-22 13:10 | ED.CHESTPAIN ---
HPI - Chest Pain General Date Seen: 03/22/24 Chief Complaint: Chest Pain Stated Complaint: Chest pain Time Seen by Provider: 03/22/24 12:53 Source: patient and family Mode of arrival: ambulatory Limitations: no limitations History of Present Illness HPI narrative: Patient is a 78-year-old female here with her presenting to the emergency department for chest pain. She has left-sided chest pain just lateral to lower sternal border. She states the symptoms 1st started occurring a couple hours a few days ago but it went away on their own. Then about an hour prior to arrival she developed the pain again and decided to come to the emergency department for evaluation. She states the pain initially was there at all times but was reproducible with palpation. She states she is having very minimal pain at this time but when she pushes on her chest she can reproduce the pain she was having earlier. Describes it as a dull sensation that does not radiate. Denies ever having symptoms like this before. No history of blood clots. No history of ACS. Denies shortness of breath. Does not have increased pain with deep breaths. Denies lightheadedness, dizziness, weakness, numbness, headache, vision changes, abdominal pain, nausea. She has no other concerns noted at this time. Related Data Home Medications ?Medication ?Instructions ?Recorded ?Confirmed alendronate 70 mg tablet mg PO 06/24/22 05/07/23 levothyroxine 88 mcg tablet mcg 06/24/22 05/07/23 pravastatin 40 mg tablet mg 06/24/22 05/07/23 Allergies Allergy/AdvReac Type Severity Reaction Status Date / Time No Known Drug Allergies Allergy Unverified 05/07/23 13:53 Review of Systems Status of ROS Reports: 10 or more systems reviewed and unremarkable except as noted in History and below [facility] Medical History Osteoarthritis of left knee ?M17.12 - Unilateral primary osteoarthritis, left knee (ICD-10) Elevated cholesterol ?E78.00 - Pure hypercholesterolemia, unspecified (ICD-10) Hypothyroid ?E03.9 - Hypothyroidism, unspecified (ICD-10) Fracture of right distal radius ?S52.501A - Unspecified fracture of the lower end of right radius, initial encounter for closed fracture (ICD-10) Surgical History Status post total hip replacement, right ?Z96.641 - Presence of right artificial hip joint (ICD-10) History of open reduction and internal fixation (ORIF) procedure (01/17/13) ?Z98.890 - Other specified postprocedural states (ICD-10) Social History Smoking Status: Never smoker Do you use any of these nicotine containing products: None Second hand tobacco smoke exposure: No How often do you have a drink containing alcohol: monthly or less How many standard drinks containing alcohol do you have on a typical day: 1 or 2 How often do you have six or more drinks on one occasion: Never AUDIT-C Alcohol total score: 1 Non-prescribed substance use: denies use service: No Exam Narrative Exam Narrative: Const: Well-nourished, Well-developed, in mild distress Eyes: PERRL, no conjunctival injection, and symmetrical lids HENT: Atraumatic external nose and ears. Moist mucous membranes. Neck: Symmetric, trachea midline, No thyromegaly. CVS: RRR, No murmurs or gallops. Peripheral pulses 2+ and equal in all extremities RESP: Unlabored respiratory effort. Clear to auscultation bilaterally. GI: Nontender/Nondistended, No rebound or guarding. MSK:Extremities w/o deformity, Normal Active ROM, tenderness to palpation left lower sternal border Skin: Warm, Dry. No rashes or lesions. Neuro: Normal Muscle tone, No focal neurological deficits. Psych: Awake, Alert, & Oriented x3. Appropriate mood and affect. Const Vital Signs, click to edit/add: Vital Signs - 24 hr 03/22/24 12:56 03/22/24 13:01 03/22/24 13:15 Temperature 97.0 F L Pulse Rate 60 66 Pulse Rate [Pulse Oximeter] 60 Respiratory Rate 18 Blood Pressure [Right Upper Arm] 163/83 H Pulse Oximetry 92 94 92 Oxygen Delivery Method Room Air 03/22/24 13:31 03/22/24 13:45 03/22/24 14:00 Temperature Pulse Rate 68 63 58 L Pulse Rate [Pulse Oximeter] Respiratory Rate 16 Blood Pressure [Right Upper Arm] Pulse Oximetry 95 94 96 Oxygen Delivery Method 03/22/24 14:15 03/22/24 14:30 03/22/24 14:45 Temperature Pulse Rate 57 L 58 L 72 Pulse Rate [Pulse Oximeter] Respiratory Rate Blood Pressure [Right Upper Arm] Pulse Oximetry 94 98 90 Oxygen Delivery Method 03/22/24 15:00 03/22/24 15:15 03/22/24 15:30 Temperature Pulse Rate 62 62 56 L Pulse Rate [Pulse Oximeter] Respiratory Rate Blood Pressure [Right Upper Arm] Pulse Oximetry 99 97 97 Oxygen Delivery Method 03/22/24 15:45 Temperature Pulse Rate 62 Pulse Rate [Pulse Oximeter] Respiratory Rate Blood Pressure [Right Upper Arm] Pulse Oximetry 97 Oxygen Delivery Method Course Vital Signs Vital signs: Initial Vital Signs Temperature 97.0 F L 03/22/24 12:56 Temperature Source Temporal Artery Scan 03/22/24 12:56 Pulse Rate 60 03/22/24 12:56 Respiratory Rate 18 03/22/24 12:56 Blood Pressure 163/83 H 03/22/24 12:56 Blood Pressure Mean 109 H 03/22/24 12:56 Pulse Oximetry 92 03/22/24 12:56 Oxygen Delivery Method Room Air 03/22/24 12:56 Vital Signs Temperature 97.0 F L 03/22/24 12:56 Pulse Rate 60 03/22/24 12:56 Respiratory Rate 18 03/22/24 12:56 Blood Pressure 163/83 H 03/22/24 12:56 Pulse Oximetry 92 03/22/24 12:56 Oxygen Delivery Method Room Air 03/22/24 12:56 Temperature 97.0 F L 03/22/24 12:56 Pulse Rate 62 03/22/24 15:45 Respiratory Rate 16 03/22/24 13:31 Blood Pressure 163/83 H 03/22/24 12:56 Pulse Oximetry 97 03/22/24 15:45 Oxygen Delivery Method Room Air 03/22/24 12:56 MDM - Chest Pain MDM Narrative Medical decision making narrative: Patient is a 78-year-old female presenting for chest pain. The differential diagnosis of chest pain is broad and includes common etiologies such as musculoskeletal strain, GERD, pneumonia, etc. More serious etiologies considered include PE, coronary artery disease, pneumothorax, aortic dissection, aortic aneurysm. Concerned she is having no associated shortness of breath or increase of pain with exertion PE seems unlikely. Also seems unlikely to be coronary artery disease, aortic dissection or aortic aneurysm concern pain is reproducible with palpation. Most likely musculoskeletal in nature. Will do a chest x-ray though to look for signs of pneumonia, pneumothorax or other intrathoracic abnormalities. Will also do EKG, troponin, CBC, BMP, COVID/flu. Lab work returned showing no concerning abnormalities. EKG shows no concerning findings. Chest x-ray reviewed by myself and the radiologist shows no concerning findings. She is pain 3 unless at palpate the area that initially heard. No other concerns noted. Did repeat the troponin and it continues to be within normal limits per most likely this is a costochondritis or musculoskeletal issue is not appear to be heart or lung related. She is doing well at this time in the safe for discharge. She is agreeable to this plan. Lab Data Labs: Lab Results 03/22/24 03/22/24 Range/Units 13:20 15:06 WBC 5.75 (4.50-11.00) K/uL RBC 4.88 (4.00-5.20) m/uL Hgb 14.6 (12.0-16.0) gm/dL Hct 44.9 (33.0-51.0) % MCV 92 (80-100) fL MCH 30 (26-34) pg MCHC 33 (32-36) gm/dL RDW Coeff of Ladi 14.1 (11.5-15.5) % Plt Count 202 (140-440) K/uL Neut % (Auto) 48.7 (42.0-72.0) % Lymph % (Auto) 31.3 (20-44) % [place] % (Auto) 14.8 H (0.0-11.0) % Eos % (Auto) 3.8 (0.0-7.0) % Baso % (Auto) 1.2 (0.0-3.0) % Neut # (Auto) 2.80 (1.7-7.0) K/uL Lymph # (Auto) 1.80 (0.90-2.90) K/uL [place] # (Auto) 0.90 (0.00-0.90) K/UL Eos # (Auto) 0.22 (0.00-0.50) K/uL Baso # (Auto) 0.07 (0.00-0.30) K/uL Abs Immat Gran (auto) 0.01 (0.00-0.30) K/uL Imm/Tot Granulo (auto) 0.2 % Sodium 139 (135-149) mmol/L Potassium 4.0 (3.6-5.1) mmol/L Chloride 105 (96-114) mmol/L Carbon Dioxide 27 (20-32) mmol/L Anion Gap 7 (7-15) mEq/L BUN 19 (7-30) mg/dL Creatinine 0.6 (0.5-1.5) mg/dL Estimated Creat Clear 39.39 Estimated GFR 91 ml/min Glucose 91 (60-115) mg/dL Calcium 8.8 (8.4-10.6) mg/dL Troponin I < 0.01 L < 0.01 L (0.01-0.04) ng/mL SARS-CoV-2 (PCR) Negative SARS-CoV-2 (Negative) Influenza Type A (PCR) Negative PCR FLU A (Negative) Influenza Type B (PCR) Negative PCR FLU B (Negative) Imaging Data Chest x-ray: Attestation: I have reviewed the pertinent imaging results. Radiologist's impression: No evidence of acute cardiopulmonary disease. Dictated by Humberto Verde MD @ 03/22/2024 2:15:52 PM ECG Data Attestation: I personally reviewed and interpreted this ECG as follows: Prior ECG tracings: available for review Interpretation: Normal sinus rhythm with a rate of 67 beats per minute, multiple PVCs, left bundle-branch block, normal QT interval, no T wave or ST abnormalities. Appears similar previous EKG on file from 05/23/2023 Discharge Plan Discharge Clinical Impression: Chest wall pain Patient Disposition: Home, Self-Care Condition: Stable Instructions: Chest Wall Pain (ED) Additional Instructions: Take Tylenol and ibuprofen as needed for pain. Return to emergency department for new or worsening symptoms. At this time this appears to be musculoskeletal pain of your chest and at this time I see no signs of heart or lung causes for this chest pain. Prescriptions: No Action pravastatin 40 mg tablet Patient Comments: Take 1 Tablet (40 mg) by mouth at bedtime. Take with 20 mg tablet for total of 60 mg at bedtime. alendronate 70 mg tablet PO Patient Comments: Take 1 Tablet (70 mg) by mouth once a week in the morning. TAKE ON EMPTY STOMACH WITH FULL GLASS OF WATER. DO NOT LIE DOWN FOR 1 HOUR. levothyroxine 88 mcg tablet Patient Comments: TAKE ONE TABLET BY MOUTH ONE TIME DAILY Follow Up/Referrals: Ksenia Monaco MD [Primary Care Provider] - Stand Alone Forms: [facility] Info Instructions
--- OUTSIDE RECORDS SUMMARY | 2024-03-22 13:18 | XMS_ITS | Clinical Summary ---
Author Organization [employer] [facility] Address [place], [place] [address] Care Team Providers Care Carpet Weaver Name Role Phone Ksenia Monaco MD Primary Care Provider Allergies No known active allergies Medications Medication Sig Dispensed Refills Start Date End Date Status multivitamin-folic acid 0.4 mg (MULTIPLE VITAMIN) Tab Take 1 tablet by mouth once daily. 0 03/19/2012 Active Calcium carbonate (OYSTERSHELL CALCIUM) 500 mg tablet Take 1 tablet by mouth 2 times daily with meals. 0 03/19/2012 Active Magnesium Oxide 500 mg cap Take 1 capsule by mouth once daily. 0 06/17/2013 Active ascorbic acid (VITAMIN C) 250 mg tablet Take 1 tablet by mouth 2 times daily. 0 06/17/2013 Active cholecalciferol (VITAMIN D) 1,000 unit capsuleIndications: Osteoporosis Take 1 capsule by mouth once daily. 100 capsule 05/03/2016 Active famotidine (PEPCID) 20 mg tabletIndications:C hronic cough Take 1 tablet by mouth 2 times daily. 60 tablet 05/20/2020 Active cyanocobalamin (VITAMIN B12) 1,000 mcg/mL injection Inject intramuscular one time for 1 dose. 0 02/15/2022 Active estrogens, conjugated (Premarin) 0.625 mg/gram vaginal creamIndications:At rophic vaginitis 1 applicator full nightly x1 week, then 1 applicatorful intravaginally twice a week. 42.5 g 11 05/25/2023 Active levothyroxine (SYNTHROID) 88 mcg tabletIndications:H ypothyroidism, unspecified type Take 1 Tablet (88 mcg) by mouth once daily. 90 Tablet 3 05/25/2023 Active pravastatin (PRAVACHOL) 20 mg tabletIndications:M ixed hyperlipidemia Take 1 Tablet (20 mg) by mouth at bedtime. Take with 40 mg tablet for total of 60 mg nightly. 90 Tablet 3 05/25/2023 Active pravastatin (PRAVACHOL) 40 mg tabletIndications:M ixed hyperlipidemia Take 1 Tablet (40 mg) by mouth at bedtime. Take with 20 mg tablet for total of 60 mg at bedtime. 90 Tablet 3 05/25/2023 Active benzonatate (Tessalon Perles) 100 mg capsuleIndications: Chronic cough Take 1 Capsule (100 mg) by mouth 3 times daily if needed for Cough. 30 Capsule 03/06/2024 Active Active Problems Problem Noted Date Diagnosed Date Unspecified hypothyroidism 03/19/2012 Mixed hyperlipidemia 03/19/2012 Osteoporosis 03/19/2012 Overview (03/19/2012): Last DXA 08/16/2011 Hip fracture, right 03/19/2012 Overview (03/19/2012): 03/2010, sustained fall from standing height when getting off of ladder.had right bipolar prosthesis Resolved Problems Problem Noted Date Diagnosed Date Resolved Date Abdominal aneurysm without mention of rupture 04/09/20 12 01/17/2013 Overview (01/17/2013): Per Susan Borja this diagnosis has no supporting imaging or notation to support it's placement in this chart. Misty Soto LPN....... 01/17/2013 9:56 AM Encounters Date Type Department Care Team Description 03/06/2024 2:30 PM CDT Office Visit [address] [id number] Duong Rust MD Consult (Chronic cough /Tonsillar enlargement ) 03/06/2024 Travel 01/08/2024 Telephone [facility] [address] [address] [address] Ksenia Monaco MD Results 01/07/2024 7:25 AM CDT Office Visit [facility] [address] [place] [address] [address] Ksenia Monaco MD Fatigue (Sleeps 7-8 hours at night and is still really tired.); Back Pain (June 2022 she fell on her back and hit head and still has lower back pain that now radiates down both legs); Breast Problem (Has been having left breast pain that comes and goes); Cough (Dry cough, been going on for several months) 01/07/2024 Travel from Last 3 Months Immunizations Name Administration Dates Next Due HepA-HepB (Twinrix) 08/04/2014,06/19/2013,2012 Influenza A (H1N1), Inactivated 06/29/2009 Influenza A (H1N1), Inactiva gildardo (Age >=3 Years) 06/29/2009 Influenza Virus, Unspecified 03/27/2017 Influenza, High-dose Inactivated 019,03/25/2018,03/27/2017,03/23,03/23/2015,04/04/2014,03/24/2013 Influenza, High-dose Quadriv alent Inactivated 04/16/2023,04/04/2022,03/29/2021 Influenza, IIV3 (Age 6-35 mos) 05/31/2005 Influenza, IIV3 (Age >=3 years) 03/19/20 12,04/27/2011,04/28/2010,04/06,05/31/2005 Influenza, IIV4 03/30/2020 Influenza, Inactivated IIV3 (Age 65+ Years) Preserv Free 03/16/2019 Pneumococcal Poly,23-Valent (Pneumovax) 02/08/2015,06/29/2009,06/29/2009 Pneumococcal conj 13-Valent (Prevnar 13) 08/04/2014 RSV, Recombinant ADJ Reconst ituted (Arexvy 120MCG/0.5mL) 05/03/2023 Td (Age >=7 Years) 09/19/2018 Tdap 06/01/2023,08/28/2007,08/28/2007 Typhoid (injectable) 07/07/2015,05/06/2013 Yellow Fever 08/04/2014 Zoster (Shingrix-RZV, recombinant) 03/16/2019,,08/26/2018 Zoster (Zostavax-ZVL, live) 06/29/2009 Family History Medical History Relation Name Comments Bone cancer Brother 1 Richard spread to spine Diabetes Brother 1 Richard Liver cancer Brother 1 Richard Lung cancer Brother 1 Richard Diabetes Father Heri Cancer Mother Isi lymphoma Thyroid Disease Mother Isi Cancer-breast Sister 1 Jacqui survivor Thyroid Disease Sister 1 Jacqui Thyroid Disease Sister 2 Jacki Anesthesia Problem No Family History Blood Disease No Family History Relation Name Status Comments Brother 1 Richard Brother 2 Russ Alive Father Heri Mother Isi Sister 1 Jacqui Alive Sister 2 Jacki Alive Social History Tobacco Use Types Packs/Day Years Used Date Smoking Tobacco: Never Passive Smoke Exposure: Never Smokeless Tobacco: Never Tobacco Cessation:Counseling Given: Yes Alcohol Use Standard Drinks/Week Comments Yes 0 (1 standard drink = 0.6 oz pure alcohol) occasionally wine, beer or liquor PHQ-2 Answer Date Recorded PHQ-2 TOTAL SCORE 0 05/25/2023 Social Connections Answer Date Recorded Frequency of Communication with Friends and Fami ly 0 05/25/2023 Financial Resource Strain Answer Date R ecorded Difficulty of Paying Living Expenses 3 05/25/2023 Difficulty of Paying Living Expenses Not on file 05/25/2023 Food Insecurity Answer Date Recorded Worried About Running Out of Food in the Last Ye ar 1 05/25/2023 Transportation Needs Answer Date Record ed Lack of Transportation (Medical) 1 05/25/2023 Housing Stability Answer Date Recorded Unable to Pay for Housing in the Last Year 1 05/25/2023 Sex and Gender Information Value Date Recorded Sex Assigned at Not on file Gender Identity Not on file Sexual Orientation Not on file Obstetrics History Para Term AB IAB SAB Ectopic Multiple Livin g Live Births 1 1 1 2 Date Outcome GA Total Labor Labor/2nd/3rd Weight Sex Type Anes PTL Ariadne A1 A5 Name Clin Term Comments Second child was adopted Last Filed Vital Signs Vital Sign Reading Time Taken Comments Blood Pressure 117/73 01/07/2024 7:29 AM CDT Pulse 72 01/07/2024 7:29 AM CDT Temperature 36.8 ??C (98.3 ??F) 12/27/2022 11:15 AM C DT Respiratory Rate 20 03/19/2022 12:13 PM CDT Oxygen Saturation 95% 01/07/2024 7:29 AM CDT Inhaled Oxygen Concentration - - Weight 72.3 kg (159 lb 6.4 oz) 01/07/2024 7:29 A M CDT Height 160 cm (5' 3) 05/25/2023 9:14 AM NATURAL FOODS CLERK Body Mass Index 28.24 05/25/2023 9:14 AM NATURAL FOODS CLERK Plan of Treatment Health Maintenance Due Date Last Done Comments COVID-19 vaccine series ( season) 2024 04/16/2023, 01/01/2023, 04/13/2022, Additional history exists Influenza for age 65+ 03/16/2024 04/16/2023 , 04/04/2022, 03/29/2021, Additional history exists BMI (ht and wt on same day) for age 18+ 05/25/2024 05/25/2023, 05/14/2023, 02/20/2023, Additional history exists Depression screening for age 12+ 05/25/2024 05/25/2023, 05/24/2022, 04/05/2022, Additional history exists Medicare Wellness for age 65+ 05/25/2024, 05/24/2022, 05/23/2021, Additional history exists Tetanus booster 06/01/2033 06/01/2023, 01/2019, 08/28/2007, Additional history exists Pneumococcal series for age 65+ Completed 02/08/2015, 08/04/2014, 06/29/2009, Additional history exists Fecal testing non-DNA (FIT,FOBT,iFOBT) for age 45-75 Discontinued 11/03/2016 Zoster (shingles) series for age 50+ Completed 03/16/2019, 10/31/2018, 08/26/2018, Additional history exists Hepatitis C screening for ag e 18-79 Completed 02/15/2022 DEXA/DXA scan for age 65+ Completed 2021, 06/03/2020, 06/01/2016, Additional history exists RSV vaccine for adults or Completed 05/03/2023 Tdap Completed 06/01/2023, 08/16, 08/28/2007 Procedures Procedure Name Priority Date/Time Associated Diagnosis Comments CBC WITH AUTO DIFFERENTIAL Routine 01/07/2024 8:18 AM CDT Chronic fatigue VITAMIN B12 Routine 01/07/2024 8:18 AM CDT B12 deficiency FERRITIN Routine 01/07/2024 8:18 AM CDT Screening, iron deficiency anemia TSH Routine 01/07/2024 8:18 AM CDT Hypothyroidism, unspecified type LIPID PANEL W REFLEX MEASURED LDL Routine 01/07/2024 8:18 AM CDT Mixed hyperlipidemia COMP METABOLIC PANEL Routine 01/07/2024 8:18 AM CDT Chronic fatigue CBC WITH AUTO DIFFERENTIAL Routine 01/07/2024 8:18 AM CDT Chronic fatigue XR DXA BONE DENSITY 2 SITES AXIAL Routine 06/05/2022 9:08 AM NATURAL FOODS CLERK Menopause ANTI HCV Routine 02/15/2022 8:37 AM CDT Need for hepatitis C screening test OCCULT BLOOD IFOBT STOOL Routine 11/03/2016 10:10 AM CDT Screening for colon cancer from Last 3 Months or Most Recently Relevant to Health Maintenance Results * CBC WITH AUTO DIFFERENTIAL (01/07/2024 8:18 AM CDT) WHITE BLOOD COUNT 7.1 4.5 - 11.0 thou/cu mm 01/07/2024 8:23 AM CDT [facility] RED BLOOD COUNT 4.85 4.00 - 5.20 mil/cu mm 01/07/2024 8:23 AM CDT [facility] HEMOGLOBIN 15.0 12.0 - 16.0 g/dL 01/07/2024 8:23 AM CDT [facility] HEMATOCRIT 45.0 33.0 - 51.0 % 01/07/2024 8:23 AM CDT [facility] MCV 93 80 - 100 fL 01/07/2024 8:23 AM CDT [facility] MCH 30.9 26.0 - 34.0 pg 01/07/2024 8:23 AM CDT [facility] MCHC 33.3 32.0 - 36.0 g/dL 01/07/2024 8:23 AM CDT [facility] RDW 14.9 11.5 - 15.5 % 01/07/2024 8:23 AM CDT [facility] PLATELET COUNT 241 140 - 440 thou/cu mm 01/07/2024 8:23 AM CDT [facility] MPV 9.5 6.5 - 11.0 fL 01/07/2024 8:23 AM CDT [facility] % NEUT 54.0 % 01/07/2024 8:23 AM CDT [facility] % LYMPH 28.8 % 01/07/2024 8:23 AM CDT [facility] % MONO 11.7 % 01/07/2024 8:23 AM CDT [facility] % EOS 4.8 % 01/07/2024 8:23 AM CDT [facility] % BASO 0.7 % 01/07/2024 8:23 AM CDT [facility] ABSOLUTE NEUTROPHILS 3.9 1.7 - 7.0 thou/cu mm 01/07/2024 8:23 AM CDT [facility] ABSOLUTE LYMPHOCYTES 2.1 0.9 - 2.9 thou/cu mm 01/07/2024 8:23 AM CDT [facility] ABSOLUTE MONOCYTES 0.8 <0.9 thou/cu mm 01/07/2024 8:23 AM CDT [facility] ABSOLUTE EOSINOPHILS 0.3 <0.5 thou/cu mm 01/07/2024 8:23 AM CDT [facility] ABSOLUTE BASOPHILS 0.1 <0.3 thou/cu mm 01/07/2024 8:23 AM CDT [facility] Blood BLOOD SPECIMEN / Unknown Venipuncture / Unknown 01/07/2024 8:18 AM CDT 01/07/2024 8:18 AM CDT Ksenia Monaco MD HEMATOLOGY [facility] [address] [place] [address], [place] [phone] * (ABNORMAL) LIPID PANEL W REFLEX MEASURED LDL (01/07/2024 8:18 AM CDT) CHOLESTEROL,TOTAL 185 100 - 199 mg/dL 01/07/2024 6:58 PM CDT [facility] Comment: Cholesterol, Total Reference Ranges Desirable <200 mg/dL Borderline 200-239 mg/dL High >=240 mg/dL TRIGLYCERIDES 178(H) <150 mg/dL 01/07/2024 6:58 PM CDT [facility] HDL CHOLESTEROL 56 >40 mg/dL 6:58 PM CDT [facility] NON-HDL CHOLESTEROL 129 <145 mg/dl 01/07/2024 6:58 PM CDT [facility] CHOL/HDL RATIO 3.30 <4.50 01/07/2024 6:58 PM CDT [facility] LDL CHOLESTEROL 93 <=130 mg/dL 01/07/2024 6:58 PM CDT [facility] VLDL CHOLESTEROL 36(H) <=30 mg/dL 01/07/2024 6:58 PM CDT [facility] PROVIDER ORDERED STATUS RANDOM 01/07/2024 6:58 PM CDT [facility] Blood BLOOD SPECIMEN / Unknown Venipuncture / Unknown 01/07/2024 8:18 AM CDT 01/07/2024 8:18 AM CDT Ksenia Monaco MD [facility] [address] [place] [address], [place] * TSH (01/07/2024 8:18 AM CDT) TSH 1.93 0.27 - 4.20 uIU/mL 01/07/2024 6:58 PM CDT [facility] Blood BLOOD SPECIMEN / Unknown Venipuncture / Unknown 01/07/2024 8:18 AM CDT 01/07/2024 8:18 AM CDT Narrative [facility] - 01/07/2024 6:58 PM CDT In Adults, TSH values between 5.00 and 10.00 uIU/ml do not necessarily indicate the presence of Hypothyroidism. Correlation with clinical findings such as presence of goiter and/or Thyroperoxidase (TPO) Antibody may be helpful. For more information please refer to JING 2004; 291: 228-238. Ksenia Monaco MD CHEMISTRY Performing Organization Address City/[facility]/ZIP Co de Phone Number [facility] [address] [place] [address], * FERRITIN (01/07/2024 8:18 AM CDT) FERRITIN 55.7 15.0 - 150.0 ng/mL 01/07/2024 6:58 PM CDT [facility] Blood BLOOD SPECIMEN / Unknown Venipuncture / Unknown 01/07/2024 8:18 AM CDT 01/07/2024 8:18 AM CDT Ksenia Monaco MD CHEMISTRY Performing Organization Address City/[facility]/ZIP Co de Phone Number [facility] [address] [place] [address], * (ABNORMAL) VITAMIN B12 (01/07/2024 8:18 AM CDT) VITAMIN B12 1,724(H) 232 - 1,245 pg/mL 01/07/2024 6:59 PM CDT [facility] Blood BLOOD SPECIMEN / Unknown Venipuncture / Unknown 01/07/2024 8:18 AM CDT 01/07/2024 8:18 AM CDT Narrative [facility] - 01/07/2024 6:59 PM CDT Biotin supplements may cause clinically significant interference for this test assay. ??If interference is suspected, it is strongly recommended that biotin is discontinued for at least one week prior to retesting. Ksenia Monaco MD CHEMISTRY [facility] [address] [place] [address], [place] * (ABNORMAL) COMP METABOLIC PANEL (01/07/2024 8:18 AM CDT) SODIUM 141 136 - 145 mmol/L 01/07/2024 6:58 PM CDT [facility] POTASSIUM 4.1 3.5 - 5.1 mmol/L 01/07/2024 6:58 PM CDT [facility] CHLORIDE 103 98 - 107 mmol/L 01/07/2024 6:58 PM CDT [facility] CO2,TOTAL 29 22 - 29 mmol/L 01/07/2024 6:58 PM T [facility] ANION GAP 9 5 - 18 01/07/2024 6:58 PM CDT [facility] GLUCOSE 97 70 - 99 mg/dL 01/07/2024 6:58 PM CDT [facility] CALCIUM 9.3 8.8 - 10.2 mg/dL 01/07/2024 6:58 PM CDT [facility] BUN 14 8 - 23 mg/dL 01/07/2024 6:58 PM T [facility] CREATININE 0.70 0.50 - 0.90 mg/dL 01/07/2024 6:58 PM T [facility] BUN/CREAT RATIO 20 10 - 20 6:58 PM T [facility] eGFR 88(L) >90 mL/min/1.7 3m2 01/07/2024 6:58 PM CDT [facility] Comment:As of 2021, eG FR is calculated by the CKD-EPI creatinine equation without race adjustment. ??eGFR can be influenced by muscle mass, exercise, and diet. ??The reported eGFR is an estimation only and is only applicable if the renal function is stable. ALBUMIN 4.4 4.0 - 4.9 g/dL 01/07/2024 6:58 PM CDT [facility] PROTEIN,TOTAL 7.0 6.0 - 8.0 g/dL 01/07/2024 6:58 PM CDT [facility] BILIRUBIN,TOTAL 0.4 0.0 - 1.2 mg/dL 01/07/2024 6:58 PM CDT [facility] ALK PHOSPHATASE 59 35 - 104 IU/L 01/07/2024 6:58 PM CDT [facility] ALT (SGPT) 16 10 - 35 IU/L 01/07/2024 6:58 PM CDT [facility] AST (SGOT) 18 10 - 35 IU/L 01/07/2024 6:58 PM CDT [facility] Blood BLOOD SPECIMEN / Unknown Venipuncture / Unknown 01/07/2024 8:18 AM CDT 01/07/2024 8:18 AM CDT Ksenia Monaco MD CHEMISTRY [facility] [address] [place] [address], * (ABNORMAL) XR DXA BONE DENSITY 2 SITES AXIAL (06/05/2022 9:08 AM NATURAL FOODS CLERK) Anatomical Region Laterality Modality Spine, HIPS, HIPL, HIPR Other Impressions 06/05/2022 4:48 PM NATURAL FOODS CLERK Osteopenia. RECOMMENDATIONS: The National Osteoporosis Foundation recommends pharmacologic treatment for patients with T-scores of -2.5 or less, patients with prior history of fragility fractures, or patients with 10-year probability of greater than 3% at hips or greater than 20% of suffering major osteoporotic fractures. Recommend continued optimization of calcium and vitamin D intake through dietary means and/or supplementation and regular exercise. Continue current Alendronate (Fosamax) medication treatment. Keshia Smyth PA-C [facility] 06/05/2022 Narrative 06/05/2022 4:48 PM NATURAL FOODS CLERK For Patients: Results are automatically released to your [facility] ([employer]) account once available, in compliance with federal regulations. This means that you may see your results before your provider has had a chance to review them. Please allow 2-3 business days for your provider to comment on the results. XR DXA Bone Mineral Density (BMD) EXAM LOCATION: [address] [address] PATIENT NAME: Norma Alberts DATE OF : 1945 EXAM DATE: 06/05/2022 REQUESTING PROVIDER: Ksenia Monaco MD GENDER AT : female HEIGHT: 5' 4 (05/24/2022) WEIGHT: ??157 lb (05/31/2022) MENOPAUSAL STATUS: Postmenopausal RACE/ETHNICITY: White RISK FACTORS: History of Fragility Fracture (at a major site) and White Race CURRENT MEDICATION FOR BONE LOSS: Alendronate (Fosamax) INDICATION: Menopause COMPARISON DATE(S): 2015 and 2019 DXA scans are compared to prior studies for a patient only when the two (or more) studies were performed on the same scanner. It is not possible to compare data generated on one scanner to data from another because there are not standards in DXA equipment. This applies even if the two scanners are made by the same stamping press operator. PROCEDURE: Dual-energy x-ray absorptiometry performed with routine technique. Reporting is completed in the form of a T-score. The T-score represents the standard deviation from peak bone mass based on young healthy adult. A Z-score is used for diagnosis in premenopausal women, and for men under the age of 50. FINDINGS: RESULT LUMBAR SPINE L2 - L4 ??BMD: 1.288 g/cm2 T-Score: + 0.7 Z-Score: + 2.3 Change from prior in 2016: ??Increase 15.5%. RESULTS FEMUR Left femoral neck BMD: 0.876 g/cm2 T-Score: - 1.2 Z-Score: + 0.8 Change from prior in 2019: ??Increase 8.3%. Left hip BMD: 0.799 g/cm2 T-Score: - 1.7 Z-Score: + 0.1 Change from prior in 2019: ??Increase 2.6%. WHO criteria: Normal: T-score at or above -1 SD Osteopenia: T-score between -1.1 and -2.4 SD Osteoporosis: T-score at or below -2.5 SD Ksenia Monaco MD DEXA * ANTI HCV (02/15/2022 8:37 AM CDT) HEPATITIS C ANTIBODY Non-React denys Non-React denys 02/15/2022 9:56 PM CDT [facility] Comment:Antibodies to HCV no t detected; does not exclude the possibility of exposure to HCV. Blood BLOOD SPECIMEN / Unknown Venipuncture / Unknown 02/15/2022 8:37 AM CDT 02/15/2022 8:39 AM CDT Ksenia Monaco MD SEND OUTS [facility] [address] [place] [address], * OCCULT BLOOD IFOBT STOOL (11/03/2016 10:10 AM CDT) STOOL BLOOD ,IFOBT Negative Negative 11/03/2016 10:34 AM CDT [facility] Stool STOOL SPECIMEN / Unknown Non-Blood / Unknown 11/03/2016 10:10 AM CDT 11/03/2016 10:10 AM CDT Susan Mera [employer] [facility] [address] [place] [address], [place] [phone] from Last 3 Months or Most Recently Relevant to Health Maintenance Advance Directives Documents on File Type Date Recorded Patient Clear Coat Sprayer Expl anation Healthcare Directive 04/30/2017 3:47 PM Juan Pablo MCGOWAN. 1945 Care Teams Carpet Weaver Relationship Specialty Start Date End Date [place]sen[place] [address] [address] PCP - General Family Practice 10/14/20
[2024-03-22 13:26] LABS: Basophils Absolute Auto 0.07 K/uL (0.00-0.30); Basophils Percent Auto 1.2 % (0.0-3.0); Eosinophils Absolute Auto 0.22 K/uL (0.00-0.50); Eosinophils Percent Auto 3.8 % (0.0-7.0); Hematocrit 44.9 % (33.0-51.0); Hemoglobin* 14.6 gm/dL (12.0-16.0); Immature Granulocytes Abs Auto 0.01 K/uL (0.00-0.30); Immature Granulocytes Pct Auto 0.2 %; Lymphocytes Percent Auto 31.3 % (20-44); Mean Corpuscular HGB Conc 33 gm/dL (32-36); Mean Corpuscular Hemoglobin 30 pg (26-34); Mean Corpuscular Volume 92 fL (80-100); Monocytes Percent Auto 14.8 % (0.0-11.0); Neutrophils Percent Auto 48.7 % (42.0-72.0); Platelet Count* 202 K/uL (140-440); RDW Coefficient of Variation % 14.1 % (11.5-15.5); Red Blood Count 4.88 m/uL (4.00-5.20); White Blood Count* 5.75 K/uL (4.50-11.00)
[2024-03-22 13:27] LABS: Slide Review Reflex No
[2024-03-22 13:57] LABS: Troponin I* < 0.01 ng/mL (0.01-0.04)
[2024-03-22 14:02] LABS: Chloride* 105 mmol/L (96-114); PCR FLU A Negative PCR FLU A (Negative); PCR FLU B Negative PCR FLU B (Negative); SARS PCR* Negative SARS-CoV-2 (Negative); Sodium* 139 mmol/L (135-149)
[2024-03-22 14:05] LABS: Anion Gap 7 mEq/L (7-15); Blood Urea Nitrogen* 19 mg/dL (7-30); Carbon Dioxide* 27 mmol/L (20-32); Creatinine* 0.6 mg/dL (0.5-1.5); Est. Creatinine Clearance* 39.39; Estimated Glomerular Filt Rate 91 ml/min; Glucose* 91 mg/dL (60-115)
[2024-03-22 14:06] LABS: Calcium* 8.8 mg/dL (8.4-10.6)
[2024-03-22 15:44] LABS: Troponin I* < 0.01 ng/mL (0.01-0.04)
== END 2024-03-22 16:10 | disposition home or self-care (01) ==
PROVIDERS: Emergency Provider Student in an Organized Health Care Education/Training Program; PCP Family Medicine
DX: R07.89 Other chest pain (principal)
CPT/HCPCS: 36415; 71046; 80048; 84484; 85025; 87631; 93005; 99283; 99284

== ENCOUNTER 2024-10-17 14:02 | Emergency (ER) | payer MEDICARE, OTHER, SELFPAY ==
--- OUTSIDE RECORDS SUMMARY | 2024-10-17 14:04 | XMS_ITS | Clinical Summary ---
Author Organization [facility] Address [address] [place] [address] Care Team Providers Care Global Account Manager Name Role Phone Ksenia Monaco MD Primary Care Provider Allergies No known active allergies Medications multivitamin-folic acid 0.4 mg (MULTIPLE VITAMIN) Tab Take 1 tablet by mouth once daily. 0 03/19/20 12 Active Calcium carbonate (OYSTERSHELL CALCIUM) 500 mg tablet Take 1 tablet by mouth 2 times daily with meals. 0 03/19/20 12 Active Magnesium Oxide 500 mg cap Take 1 capsule by mouth once daily. 0 06/17/20 13 Active ascorbic acid (VITAMIN C) 250 mg tablet Take 1 tablet by mouth 2 times daily. 0 06/17/20 13 Active cholecalciferol (VITAMIN D) 1,000 unit capsuleIndications :Osteoporosis Take 1 capsule by mouth once daily. 100 capsule 05/03/20 16 Active cyanocobalamin (VITAMIN B12) 1,000 mcg/mL injection Inject intramuscular one time for 1 dose. 0 02/16/20 22 Active estrogens, conjugated (Premarin) 0.625 mg/gram vaginal creamIndications:A trophic vaginitis 1 applicator full nightly x1 week, then 1 applicatorful intravaginally twice a week. 42.5 g 11 05/29/20 24 Active famotidine (PEPCID) 20 mg tabletIndications: Chronic cough Take 1 Tablet (20 mg) by mouth two times daily. 180 Tablet 3 05/29/20 24 Active levothyroxine (SYNTHROID) 88 mcg tabletIndications: Hypothyroidism, unspecified type Take 1 Tablet (88 mcg) by mouth once daily. 90 Tablet 3 05/29/20 24 Active pravastatin (PRAVACHOL) 40 mg tabletIndications: Mixed hyperlipidemia Take 1 Tablet (40 mg) by mouth at bedtime. Take with 20 mg tablet for total of 60 mg at bedtime. 90 Tablet 3 05/29/20 24 Active pravastatin (PRAVACHOL) 20 mg tabletIndications: Mixed hyperlipidemia Take 1 Tablet (20 mg) by mouth at bedtime. Take with 40 mg tablet for total of 60 mg nightly. 90 Tablet 3 05/29/20 24 Active benzonatate (Tessalon Perles) 100 mg capsuleIndications :Chronic cough Take 1 Capsule (100 mg) by mouth 3 times daily if needed for Cough. 30 Capsule 5 05/29/20 24 Active alendronate (FOSAMAX) 70 mg tabletIndications: Localized osteoporosis, unspecified pathological fracture presence Take 1 Tablet (70 mg) by mouth once a week in the morning. Take on empty stomach with full glass of water. Do not lie down for 1 hr. 12 Tablet 3 08/18/19 25 Active Active Problems Problem Noted Date Diagnosed [...] Encounters Date Type Department Care Team Description 08/18/2024 1:50 PM ANCILLARY SERVICES MANAGER THERAPY Office Visit [facility] [address] [place] [address] Ksenia Monaco MD Medication Management (Discuss Osteopenia medication as a result of DEXA scan); Consult (Would like to discuss about a referral for a concussion 2 yrs ago to see a Neurologist) 08/18/2024 Travel 08/04/2024 9:40 AM ANCILLARY SERVICES MANAGER THERAPY Ancillary Procedure [facility] [address] [place] [address] [address] 08/04/2024 9:00 AM ANCILLARY SERVICES MANAGER THERAPY Ancillary Procedure [facility] [address] [place] [address] 08/04/2024 Travel from Last 3 Months Immunizations Immunization Administration Dates Next Due HepA-HepB (Twinrix) 08/04/2014,06/19/2013,2012 Influenza A (H1N1), Inactivated 06/29/2009 Influenza A (H1N1), Inactiva gildardo (Age >=3 Years) 06/29/2009 Influenza Virus, Unspecified 03/27/2017 Influenza, High-dose Inactivated 024,04/09/2019,03/25/2018,03/27,03/23/2016,03/23/2015,04/04/2014 ,03/24/2013 Influenza, High-dose Quadriv alent Inactivated 04/16/2023,04/04/2022,03/29/2021 Influenza, [...] Answer Date Recorded PHQ-2 TOTAL SCORE 0 05/29/2024 Social Connections Answer Date Recorded Do you often feel lonely or isolated from those around you? 0 05/29/2024 Financial Resource Strain Answer Date R ecorded Difficulty of Paying Living Expenses 3 05/29/2024 Difficulty of Paying Living Expenses Not on file 05/29/2024 Food Insecurity Answer Date Recorded Do you worry your food will run out before you are able to buy more? 1 05/29/2024 Transportation Needs Answer Date Record ed Does lack of transportation keep you from medica l appointments? 1 05/29/2024 Does lack of transportation keep you from work, meetings or getting things that you need? 1 05/29/2024 Housing Stability Answer Date Recorded What is your housing situation today? 1 05/29/2024 Utilities Answer Date Recorded Do you have trouble paying f or utilities (for example, heat, electricity, water, phone)? 1 05/29/2024 Comments No Sex and Gender Information Value Date Recorded Sex Assigned at Not on file Legal Sex Female 8:37 AM ANCILLARY SERVICES MANAGER THERAPY Gender Identity Not on file Sexual Orientation Not on file 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 on file Not on file Obstetrics History Para Term AB IAB SAB Ectopic Multiple Livin g Live Births 1 1 1 2 Date Outcome GA Total Labor Labor//3rd Weight Sex Type Anes PTL Ariande A1 A5 Name Clin Term Comments Second child was adopted Last Filed Vital Signs Vital Sign Reading Time Taken Comments Blood Pressure 108/72 08/18/2024 1:43 PM ANCILLARY SERVICES MANAGER THERAPY Pulse 72 08/18/2024 1:43 PM ANCILLARY SERVICES MANAGER THERAPY Temperature 36.6 C (97.8 F) 03/25/2024 1:56 PM CDT Respiratory Rate 20 03/19/2022 12:13 PM CDT Oxygen Saturation 95% 08/18/2024 1:43 PM ANCILLARY SERVICES MANAGER THERAPY Inhaled Oxygen Concentration - - Weight 73.3 kg (161 lb 9.6 oz) 05/29/2024 2:09 P M ANCILLARY SERVICES MANAGER THERAPY Height 161.3 cm (5' 3.5) 05/29/2024 2:09 PM ANCILLARY SERVICES MANAGER THERAPY Body Mass Index 28.18 05/29/2024 2:09 PM ANCILLARY SERVICES MANAGER THERAPY Plan of Treatment Health Maintenance Due Date Last Done Comments COVID-19 vaccine series ( season) 2024 04/08/2024, 04/16/2023, 01/01/2023, Additional history exists BMI (ht and wt on same day) for age 18+ 05/29/2025 05/29/2024, 05/25/2023, 05/14/2023, Additional history exists Medicare Wellness for age 65+ 05/30/2025, 05/25/2023, 05/24/2022, Additional history exists Depression screening for age 12+ 08/04/2025 08/04/2024, 05/29/2024, 05/25/2023, Additional history exists Tetanus booster 06/01/2033 06/01/2023, 0301/2019, 08/28/2007, Additional history exists Pneumococcal series for age 50+ Completed 02/08/2015, 08/04/2014, 06/29/2009, Additional history exists Zoster (shingles) series for age 50+ Completed 03/16/2019, 10/31/2018, 08/26/2018, Additional history exists RSV vaccine for adults or Completed 05/03/2023 Tdap Completed 06/01/2023, 08/16, 08/28/2007 Influenza Vaccine Completed 04/08/2024, , 04/09/2019, Additional history exists DEXA/DXA scan for age 65+ Completed 2024, 06/05/2022, 06/03/2020, Additional history exists Procedures Procedure Name Priority Date/Time Associated Diagnosis Comments XR DXA BONE DENSITY 2 SITES AXIAL Routine 08/04/2024 9:47 AM ANCILLARY SERVICES MANAGER THERAPY Menopause XR MAMMO BILAT SCREENING Routine 08/04/2024 9:07 AM ANCILLARY SERVICES MANAGER THERAPY Encounter for screening mammogram for malignant neoplasm of breast from Last 3 Months Results * (ABNORMAL) XR DXA BONE DENSITY 2 SITES AXIAL (08/04/2024 9:47 AM ANCILLARY SERVICES MANAGER THERAPY) Anatomical Region Laterality Modality Spine, HIPS, HIPL, HIPR Other Impressions 08/05/2024 8:13 AM ANCILLARY SERVICES MANAGER THERAPY Osteoporosis. RECOMMENDATIONS: The National Osteoporosis Foundation recommends pharmacologic [...] exercise. Continue current Alendronate (Fosamax) medication treatment. Consider a drug holiday from bisphosphonates if indicated. Consider alternative treatment as there has been a decline at the left hip (total and neck) despite reported use of Fosamax. Keshia Smyth PA-C [facility] 08/05/2024 Narrative 08/05/2024 8:13 AM ANCILLARY SERVICES MANAGER THERAPY For Patients: Results are automatically released to your [facility] account once available, in compliance with federal regulations. This means that you may see your results before your provider has had a chance to review them. Please allow 2-3 business days for your provider to comment on the results. XR DXA Bone Mineral Density (BMD) EXAM LOCATION: [address] [address] PATIENT NAME: Norma Alberts DATE OF : 1945 EXAM DATE: 08/04/2024 REQUESTING PROVIDER: Ksenia Monaco MD GENDER AT : female HEIGHT: 5' 3.5 (05/29/2024) WEIGHT: 161 lb 9.6 oz (05/29/2024) MENOPAUSAL STATUS: Postmenopausal RACE/ETHNICITY: White RISK FACTORS: White Race CURRENT MEDICATION FOR BONE LOSS: Alendronate (Fosamax) INDICATION: Follow-up of existing osteopenia, Follow-up of pharmacologic treatment, and Post-Menopause COMPARISON DATE(S): 2015, 2021 DXA scans are compared to prior studies for a patient only when the two (or more) studies were performed on the same scanner. It is not possible to compare data generated on one scanner to data from another because there are not standards in DXA equipment. This applies even if the two scanners are made by the same machinery repair maintenance supervisor. PROCEDURE: Dual-energy x-ray absorptiometry performed with routine technique. Reporting is completed in the form of a T-score. The T-score represents the standard deviation from peak bone mass based on young healthy adult. A Z-score is used for diagnosis in premenopausal women, and for men under the age of 50. FINDINGS: RESULT LUMBAR SPINE L1 - L3 BMD: 1.118 g/cm2 T-Score: - 0.5 Z-Score: + 1.0 Change from prior in 2015: Increase 11.1%. RESULTS FEMUR Left femoral neck BMD: 0.732 g/cm2 T-Score: - 2.2 Z-Score: - 0.2 Change from prior in 2021: Decrease 16.4%. Left hip BMD: 0.681 g/cm2 T-Score: - 2.6 Z-Score: - 0.8 Change from prior in 2021: Decrease 14.8%. WHO criteria: Normal: T-score at or above -1 SD Osteopenia: T-score between -1.1 and -2.4 SD Osteoporosis: T-score at or below -2.5 SD us Ksenia Monaco MD DEXA Final R esult * XR MAMMO BILAT SCREENING (08/04/2024 9:07 AM ANCILLARY SERVICES MANAGER THERAPY) Anatomical Region Laterality Modality BREASTS, Breast Left, Breast Right Bilateral Mammography Impressions 08/06/2024 1:42 PM ANCILLARY SERVICES MANAGER THERAPY There is no radiographic evidence for malignancy. Recommend annual mammograms. MAMMOGRAM ASSESSMENT: ACR 1 Negative PATIENTS: You will also receive a letter with your examination results in an easy to read format. If you have questions about your results, please contact your referring provider. Narrative 08/06/2024 1:42 PM ANCILLARY SERVICES MANAGER THERAPY For Patients: As a result of the Cures Act, medical imaging exams and procedure reports are released immediately into your electronic medical record. You may view this report before your referring provider. If you have questions, please contact your health care provider. XR MAMMO BILAT SCREENING [[id number]] CLINICAL HISTORY: This is an asymptomatic 79 y.o. patient. INDICATION FOR EXAM: Mammogram Screening. TECHNIQUE: CC & MLO views were obtained. This study was evaluated with the assistance of Computer-Aided Detection. COMPARISON FILM: Yes 07/23/23 [facility] 06/19/22 [facility] FINDINGS: There are scattered areas of fibroglandular density. There are no dominant masses, suspicious micro calcifications or areas of architectural distortion. Ksenia Monaco MD MAMMO Final R esult from Last 3 Months Insurance [employer] HB MEDICARE PART B HB ONLY MEDICA PRIME SOLUTIONS MR PB ONLY Advance Directives Documents on File Type Date Recorded Patient Pharmacy Clinical Coordinator Expl anation Healthcare Directive 04/30/2017 3:47 PM [facility]. 1945 Care Teams Global Account Manager Relationship Specialty Start Date End Date Ksenia Monaco MD [address] [place] [address] PCP - General Family Practice 10/14/20
[2024-10-17 14:12] VITALS: BP 135/81; PULSE 75; RESP 16; TEMP 37.1; O2SAT 95; BMI 25.7
--- NOTE | 2024-10-17 14:36 | ED.GENADULT ---
HPI - General Adult General Chief complaint: Extremity Pain/Injury, Lower Stated complaint: R leg pain Time Seen by Provider: 10/17/24 14:21 History of Present Illness HPI narrative: Patient is a 79-year-old woman who comes in today with no history of any trauma but with exquisite pain down the right leg in Ng in the anterior alba. She has no other neurologic symptoms no fevers no chills no night sweats no cough no shortness of breath. She has no overt back pain no joint swelling. Patient symptoms have been present for the last 2-3 days and seem to be getting worse. She is in with her . Patient has taken Tylenol with no improvement. Related Data Home Medications ?Medication ?Instructions ?Recorded ?Confirmed alendronate 70 mg tablet mg PO 06/24/22 05/07/23 levothyroxine 88 mcg tablet mcg 06/24/22 05/07/23 pravastatin 40 mg tablet mg 06/24/22 05/07/23 famotidine 20 mg tablet 20 mg PO BID 10/17/24 10/17/24 Allergies Allergy/AdvReac Type Severity Reaction Status Date / Time No Known Drug Allergies Allergy Verified 10/17/24 14:21 Review of Systems Status of ROS: Reports: 10 or more systems reviewed and unremarkable except as noted in History and below [facility] Medical History Osteoarthritis of left knee ?M17.12 - Unilateral primary osteoarthritis, left knee (ICD-10) Elevated cholesterol ?E78.00 - Pure hypercholesterolemia, unspecified (ICD-10) Hypothyroid ?E03.9 - Hypothyroidism, unspecified (ICD-10) Fracture of right distal radius ?S52.501A - Unspecified fracture of the lower end of right radius, initial encounter for closed fracture (ICD-10) Surgical History Status post total hip replacement, right ?Z96.641 - Presence of right artificial hip joint (ICD-10) History of open reduction and internal fixation (ORIF) procedure (01/17/13) ?Z98.890 - Other specified postprocedural states (ICD-10) Social History Smoking Status: Never smoker Do you use any of these nicotine containing products: None Second hand tobacco smoke exposure: No How often do you have a drink containing alcohol: monthly or less How many standard drinks containing alcohol do you have on a typical day: 1 or 2 How often do you have six or more drinks on one occasion: Never AUDIT-C Alcohol total score: 1 Non-prescribed substance use: denies use service: No Exam Narrative: Exam Narrative: EXAM GENERAL: Patient appears comfortable and well. EYES: No scleral icterus. LYMPH: No supraclavicular or cervical lymphadenopathy. SKIN: Visible skin seen during exam normal or with benign process only. EXT: No dependent lower extremity pedal edema. HEART: Regular rate and rhythm with no murmurs, rubs, or gallops. LUNGS: Clear to auscultation bilaterally with no crackles or wheezes. ABD: Soft, non tender, non distended. PSYCH: Good eye contact, speech is not pressured. Neurologic cranial nerves 2-12 grossly intact no focal defects. Const: Vital Signs, click to edit/add: Vital Signs - 24 hr 10/17/24 14:12 Temperature 98.8 F Pulse Rate [Right Pulse Oximeter] 75 Respiratory Rate 16 Blood Pressure [Ri ght Upper Arm] 135/81 Pulse Oximetry 95 Oxygen Delivery Me thod Room Air Course Course ED Course: Patient seen and examined. Vital Signs Vital signs: Initial Vital Signs Temperature 98.8 F 10/17/24 14:12 Temperature Source Temporal Artery Scan 10/17/24 14:12 Pulse Rate 75 10/17/24 14:12 Pulse Rhythm Regular 10/17/24 14:12 Pulse Strength 3+ Normal 10/17/24 14:12 Respiratory Rate 16 10/17/24 14:12 Blood Pressure 135/81 10/17/24 14:12 Blood Pressure Mean 99 10/17/24 14:12 Blood Pressure Position Sitting 10/17/24 14:12 Pulse Oximetry 95 10/17/24 14:12 Oxygen Delivery Method Room Air 10/17/24 14:12 Vital Signs Temperature 98.8 F 10/17/24 14:12 Pulse Rate 75 10/17/24 14:12 Respiratory Rate 16 10/17/24 14:12 Blood Pressure 135/81 10/17/24 14:12 Pulse Oximetry 95 10/17/24 14:12 Oxygen Delivery Method Room Air 10/17/24 14:12 Temperature 98.8 F 10/17/24 14:12 Pulse Rate 75 10/17/24 14:12 Respiratory Rate 16 10/17/24 14:12 Blood Pressure 135/81 10/17/24 14:12 Pulse Oximetry 95 10/17/24 14:12 Oxygen Delivery Method Room Air 10/17/24 14:12 Medical Decision Making MDM Narrative Medical decision making narrative: Patient presents with radicular symptoms down the right leg. The patient has no history of any trauma no indication for any imaging. Patient has been taking Tylenol with limited effect. Her symptoms are most consistent with lumbar radiculopathy and I did treated with short course of prednisone as well as [place] as directed. I do note that her age of [age] years old makes this somewhat more dangerous but she does liver the care of her . She will not drive using machine Re will follow-up with her primary physician next week would recommend imaging PT and or MRI if symptoms persist. Discharge Plan Discharge Clinical Impression: Sciatica Patient Disposition: Home, Self-Care Condition: Stable Instructions: Sciatica (ED) Additional Instructions: Prednisone as directed [place] as directed Advanced activity as tolerated. No driving. Follow-up with your doctor early next week. Activity Level: No Restrictions Discharge Diet: Regular Prescriptions: No Action pravastatin 40 mg tablet Patient Comments: Take 1 Tablet (40 mg) by mouth at bedtime. Take with 20 mg tablet for total of 60 mg at bedtime. alendronate 70 mg tablet PO Patient Comments: Take 1 Tablet (70 mg) by mouth once a week in the morning. TAKE ON EMPTY STOMACH WITH FULL GLASS OF WATER. DO NOT LIE DOWN FOR 1 HOUR. levothyroxine 88 mcg tablet Patient Comments: TAKE ONE TABLET BY MOUTH ONE TIME DAILY famotidine 20 mg tablet 20 mg PO BID Follow Up/Referrals: Ksenia Monaco MD [Primary Care Provider] - Stand Alone Forms: NetDocuments Info Instructions
--- OUTSIDE RECORDS SUMMARY | 2024-10-17 14:48 | XMS_ITS | Clinical Summary ---
Author Organization [facility] Address [address] [place] [address] Care Team Providers Care Medical Biller Coder Name Role Phone Ksenia Monaco MD Primary [...] Department Care Team Description 08/18/2024 1:50 PM RECONSTRUCTIVE SURGEON Office Visit [facility] [address] [place] [address] Ksenia Monaco MD Medication Management (Discuss Osteopenia medication as a result of DEXA scan); Consult (Would like to discuss about a referral for a concussion 2 yrs ago to see a Neurologist) 08/18/2024 Travel 08/04/2024 9:40 AM RECONSTRUCTIVE SURGEON Ancillary Procedure [facility] [address] [place] [address] [address] 08/04/2024 9:00 AM RECONSTRUCTIVE SURGEON Ancillary Procedure [facility] [address] [place] [address] 08/04/2024 Travel from Last 3 Months Immunizations [...] on file Legal Sex Female 8:37 AM RECONSTRUCTIVE SURGEON Gender Identity Not on file Sexual Orientation Not on file 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 on file Not on file Obstetrics History Para Term AB IAB SAB Ectopic Multiple Livin g Live Births 1 1 1 2 Date Outcome GA Total Labor Labor//3rd Weight Sex Type Anes PTL Ariadne A1 A5 Name Clin Term Comments Second child was adopted Last Filed Vital Signs Vital Sign Reading Time Taken Comments Blood Pressure 108/72 08/18/2024 1:43 PM RECONSTRUCTIVE SURGEON Pulse 72 08/18/2024 1:43 PM RECONSTRUCTIVE SURGEON Temperature 36.6 C (97.8 F) 03/25/2024 1:56 PM CDT Respiratory Rate 20 03/19/2022 12:13 PM CDT Oxygen Saturation 95% 08/18/2024 1:43 PM RECONSTRUCTIVE SURGEON Inhaled Oxygen Concentration - - Weight 73.3 kg (161 lb 9.6 oz) 05/29/2024 2:09 P M RECONSTRUCTIVE SURGEON Height 161.3 cm (5' 3.5) 05/29/2024 2:09 PM RECONSTRUCTIVE SURGEON Body Mass Index 28.18 05/29/2024 2:09 PM RECONSTRUCTIVE SURGEON Plan of Treatment Health Maintenance Due Date [...] 2 SITES AXIAL Routine 08/04/2024 9:47 AM RECONSTRUCTIVE SURGEON Menopause XR MAMMO BILAT SCREENING Routine 08/04/2024 9:07 AM RECONSTRUCTIVE SURGEON Encounter for screening mammogram for malignant neoplasm of breast from Last 3 Months Results * (ABNORMAL) XR DXA BONE DENSITY 2 SITES AXIAL (08/04/2024 9:47 AM RECONSTRUCTIVE SURGEON) Anatomical Region Laterality Modality Spine, HIPS, HIPL, HIPR Other Impressions 08/05/2024 8:13 AM RECONSTRUCTIVE SURGEON Osteoporosis. RECOMMENDATIONS: The National Osteoporosis Foundation recommends [...] reported use of Fosamax. Keshia Smyth PA-C [facility] 08/05/2024 Narrative 08/05/2024 8:13 AM RECONSTRUCTIVE SURGEON For Patients: Results are automatically released to your [facility] account once available, in compliance with federal regulations. This means that you may see your results before your provider has had a chance to review them. Please allow 2-3 business days for your provider to comment on the results. XR DXA Bone Mineral Density (BMD) EXAM LOCATION: [address] [address] PATIENT NAME: Norma Alberts DATE OF : [...] two scanners are made by the same spd tech. PROCEDURE: Dual-energy x-ray absorptiometry performed with routine [...] at or below -2.5 SD us Ksenia oMnaco MD DEXA Final R esult * XR MAMMO BILAT SCREENING (08/04/2024 9:07 AM RECONSTRUCTIVE SURGEON) Anatomical Region Laterality Modality BREASTS, Breast Left, Breast Right Bilateral Mammography Impressions 08/06/2024 1:42 PM RECONSTRUCTIVE SURGEON There is no radiographic evidence for malignancy. Recommend annual mammograms. MAMMOGRAM ASSESSMENT: ACR 1 Negative PATIENTS: You will also receive a letter with your examination results in an easy to read format. If you have questions about your results, please contact your referring provider. Narrative 08/06/2024 1:42 PM RECONSTRUCTIVE SURGEON For Patients: As a result of the Cures Act, medical imaging exams and procedure reports are released immediately into your electronic medical record. You may view this report before your referring provider. If you have questions, please contact your health care provider. XR MAMMO BILAT SCREENING [[id number]] CLINICAL HISTORY: This is an asymptomatic 79 [...] R esult from Last 3 Months Insurance [employer] HB MEDICARE PART B HB ONLY MEDICA PRIME SOLUTIONS MR PB ONLY Advance Directives Documents on File Type Date Recorded Patient Membership Solicitor Expl anation Healthcare Directive 04/30/2017 3:47 PM Juan Pablo MCGOWAN. 1945 Care Teams Medical Biller Coder Relationship Specialty Start Date End Date Kseina Monaco MD [address] [place] [address] PCP - General Family Practice 10/14/20
== END 2024-10-17 14:59 | disposition home or self-care (01) ==
LOC: ED 14:46
PROVIDERS: Emergency Provider Internal Medicine; PCP Family Medicine
DX: M54.31 Sciatica, right side (principal)
CPT/HCPCS: 99283

== ENCOUNTER 2024-12-27 08:56 | Emergency (ER) | payer MEDICARE, OTHER, SELFPAY ==
[2024-12-27] VITALS (18 sets, daily range): BP systolic 141–175; BP diastolic 73–83; PULSE 57–68; RESP 8–20; TEMP 36.2; O2SAT 93–97; BMI 25.7
--- OUTSIDE RECORDS SUMMARY | 2024-12-27 08:59 | XMS_ITS | Clinical Summary ---
Author Organization [facility] Address [address] [place] [id number] Care Team Providers Care Wood Box Maker Name Role Phone Ksenia Monaco MD Primary [...] Encounters Date Type Department Care Team Description 11/27/[address] [phone] Ksenia Monaco MD Referral (Referral for [place]) 10/20/2024 8:30 AM CDT Ancillary Procedure [facility] [address] [place] [address] [id number] 57 10/20/2024 7:55 AM CDT Office Visit [facility] [address] [place] [address] [address] Jt Candelario MD Follow Up (ER 4/4 Leg pain- feel better ) 10/20/2024 Travel from Last 3 Months Immunizations Immunization [...] on file Legal Sex 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 Gender Identity Not on file Sexual Orientation [...] Sign Reading Time Taken Comments Blood Pressure 126/74 10/20/2024 7:45 AM CDT Pulse 67 10/20/2024 7:45 AM CDT Temperature 36.6 C (97.8 F) 03/25/2024 1:56 PM CDT Respiratory Rate 20 03/19/2022 12:13 PM CDT Oxygen Saturation 97% 10/20/2024 7:45 AM CDT Inhaled Oxygen Concentration - - Weight 72.1 kg (159 lb) 10/20/2024 7:45 AM CDT Height 161.3 cm (5' 3.5) 05/29/2024 2:09 PM BELT DRESSER Body Mass Index 27.72 05/29/2024 2:09 PM BELT DRESSER Plan of Treatment Health Maintenance Due Date [...] Additional history exists Tetanus booster 06/01/2033 06/01/2023, 03/0 01/2019, 08/28/2007, Additional history exists Hepatitis B series for 19+ Completed 08/04, 06/19/2013, 05/22/2013 Pneumococcal series for age 50+ Completed 02/08/2015, [...] Name Priority Date/Time Associated Diagnosis Comments XR TIBIA AND FIBULA 2 VIEWS RIGHT Routine 10/20/2024 8:37 AM CDT Radicular leg pain Medial tibial stress syndrome, unspecified laterality, sequela XR DXA BONE DENSITY 2 SITES AXIAL Routine 08/04/2024 9:47 AM BELT DRESSER Menopause from Last 3 Months or Most Recently Relevant to Health Maintenance Results * XR TIBIA AND FIBULA 2 VIEWS RIGHT (10/20/2024 8:37 AM CDT) Anatomical Region Laterality Modality Tibia Computed Radiogr aphy 10/20/2024 10:1 6 AM CDT Narrative 10/20/2024 10:16 AM CDT For Patients: As a result of the Cures Act, medical imaging exams and procedure reports are released immediately into your electronic medical record. You may view this report before your referring provider. If you have questions, please contact your health care provider. INDICATION : Pain TECHNIQUE : 2View right tibia fibula IMPRESSION : No significant bony radiographic abnormality the soft tissues are unremarkable. Some arthrosis changes are incidentally noted at the right knee Dictated by Jovanni Morse MD @ 10/20/2024 10:16:12 AM (Electronically Signed) Procedure Note Jovanni Morse MD - 10/20/2024 For Patients: As a result of the s Act, medical imagingexams and procedure reports are released immediately into your electronicmedical record. You may view this report before your referring provider.If you have questions, please contact your health care provider. INDICATION : Pain TECHNIQUE : 2View right tibia fibula IMPRESSION : No significant bony radiographic abnormality the soft tissues areunremarkable. Some arthrosis changes are incidentally noted at the right knee Dictated by Jovanni Morse MD @ 10/20/2024 10:16:12 AM (Electronically Signed) Jt Candelario MD GENERAL IMAGING Final Result * (ABNORMAL) XR DXA BONE DENSITY 2 SITES AXIAL (08/04/2024 9:47 AM BELT DRESSER) Anatomical Region Laterality Modality Spine, HIPS, HIPL, HIPR Other Impressions 08/05/2024 8:13 AM BELT DRESSER Osteoporosis. RECOMMENDATIONS: The National Osteoporosis Foundation recommends [...] reported use of Fosamax. Keshia Smyth PA-C [facility] 08/05/2024 Narrative 08/05/2024 8:13 AM BELT DRESSER For Patients: Results are automatically released to your [facility] account once available, in compliance with federal regulations. This means that you may see your results before your provider has had a chance to review them. Please allow 2-3 business days for your provider to comment on the results. XR DXA Bone Mineral Density (BMD) EXAM LOCATION: [address] [address] PATIENT NAME: Norma Alberts DATE OF : 1945 EXAM DATE: 08/04/2024 REQUESTING PROVIDER: Ksenia Monaco MD GENDER AT : female HEIGHT: 5' 3.5 (05/29/2024) WEIGHT: 161 lb 9.6 oz (05/29/2024) MENOPAUSAL STATUS: Postmenopausal RACE/ETHNICITY: White RISK FACTORS: White Race CURRENT MEDICATION FOR BONE LOSS: Alendronate (Fosamax) INDICATION: Follow-up of existing osteopenia, Follow-up of pharmacologic treatment, and Post-Menopause COMPARISON DATE(S): 2021 DXA scans are compared to prior studies for a patient only when the two (or more) studies were performed on the same scanner. It is not possible to compare data generated on one scanner to data from another because there are not standards in DXA equipment. This applies even if the two scanners are made by the same grain trader. PROCEDURE: Dual-energy x-ray absorptiometry performed with routine [...] below -2.5 SD Ksenia Monaco MD DEXA Final R esult from Last 3 Months or Most Recently Relevant to Health Maintenance Insurance MEDICA [employer] SOLUTION HB MEDICARE PART B HB ONLY MEDICA PRIME SOLUTIONS MR PB ONLY Advance Directives Documents on File Type Date Recorded Patient Commercial Lending Relationship Manager Expl anation Healthcare Directive 04/30/2017 3:47 PM Juan Pablo MCGOWAN. 1945 Care Teams Wood Box Maker Relationship Specialty Start Date End Date Ksenia Monaco MD [address] [facility] [place] [address] PCP - General Family Practice 10/14/20
--- NOTE | 2024-12-27 09:24 | ED.CHESTPAIN ---
HPI - Chest Pain General Chief Complaint: Chest Pain Stated Complaint: left chest pain Time Seen by Provider: 12/27/24 09:01 History of Present Illness HPI narrative: This 79-year-old female comes in with her because of sudden onset of chest pain that is now resolved. She states that she was not doing anything in particular and was planning to go to a when she began to have rather sharp left sternal chest pain. There was no associated nausea, vomiting, lightheadedness, shortness of breath, or diaphoresis. She states that she does not have any chest pain with exertion in the recent past. She does not have any cardiac risk factors. Related Data Home Medications ?Medication ?Instructions ?Recorded ?Confirmed alendronate 70 mg tablet mg PO 06/24/22 05/07/23 Held on 12/27/24. Instructions: per pt. levothyroxine 88 mcg tablet mcg 06/24/22 05/07/23 pravastatin 40 mg tablet mg 06/24/22 05/07/23 famotidine 20 mg tablet 20 mg PO BID 10/17/24 10/17/24 B12 1,000 mcg PO QDAY replacement 12/27/24 12/27/24 Allergies Allergy/AdvReac Type Severity Reaction Status Date / Time No Known Drug Allergies Allergy Verified 10/17/24 14:21 Review of Systems Status of ROS Reports: 10 or more systems reviewed and unremarkable except as noted in History and below Narrative Constitutional: No fevers, no weight gain or loss. Eyes: No discharge. No vision changes. HENT: No congestion, no sore throat, no ear pain. Cardiovascular: No chest pain, no palpitations. Respiratory: No shortness of breath, no wheezes, no cough. Gastrointestinal: No abdominal pain, no vomiting, no diarrhea. Genitourinary: No dysuria, no hematuria. Musculoskeletal: Normal range of motion. Skin: No rashes, no pruritis. Neurological: No dizziness, weakness, sensory change, speech change. Endo/Heme/Allergies: No bruising or bleeding. No polydipsia. Pysch: no suicidality, no anxiety, no insomnia. She reports memory loss. All other systems reviewed and are negative. [facility] Medical History Osteoarthritis of left knee ?M17.12 - Unilateral primary osteoarthritis, left knee (ICD-10) Elevated cholesterol ?E78.00 - Pure hypercholesterolemia, unspecified (ICD-10) Hypothyroid ?E03.9 - Hypothyroidism, unspecified (ICD-10) Fracture of right distal radius ?S52.501A - Unspecified fracture of the lower end of right radius, initial encounter for closed fracture (ICD-10) Surgical History Status post total hip replacement, right ?Z96.641 - Presence of right artificial hip joint (ICD-10) History of open reduction and internal fixation (ORIF) procedure (01/17/13) ?Z98.890 - Other specified postprocedural states (ICD-10) Social History Smoking Status: Never smoker Do you use any of these nicotine containing products: None Second hand tobacco smoke exposure: No How often do you have a drink containing alcohol: monthly or less How many standard drinks containing alcohol do you have on a typical day: 1 or 2 How often do you have six or more drinks on one occasion: Never AUDIT-C Alcohol total score: 1 Non-prescribed substance use: denies use service: No Exam Narrative Exam Narrative: Constitutional: Well-developed, well-nourished, no acute distress. HEENT: Normocephalic, atraumatic. Neck: Normal range of motion. Nontender. Supple. Heart: Regular. No murmurs. Normal rate. Intact distal pulses. Lungs: Clear to auscultation. No chest discomfort. No wheezes, rhonchi, or rales. Abdomen: Normal bowel sounds. Nontender. No rebound tenderness. Genitalia: Deferred. Back: No midline tenderness. Normal range of motion. Extremities: Normal range of motion. No injury. Skin: Intact. No rash. Warm. No erythema or pallor. Neurologic: No altered sensation. No weakness. Alert and oriented. Psychiatric: No suicidality. No anxiety or depression. No insomnia. Nursing notes and vitals signs are reviewed. Const Vital Signs, click to edit/add: Vital Signs - 24 hr 12/27/24 08:58 12/27/24 09:02 12/27/24 09:03 Temperature 97.2 F L Pulse Rate 62 58 L Pulse Rate [Right Radial] 59 L Respiratory Rate 20 20 Blood Pressure 174/74 H Blood Pressure [Left Upper Arm] 175/74 H Pulse Oximetry 96 96 95 Oxygen Delivery Method Room Air 12/27/24 09:15 12/27/24 09:29 12/27/24 09:30 Temperature Pulse Rate 63 60 57 L Pulse Rate [Right Radial] Respiratory Rate 16 14 16 Blood Pressure Blood Pressure [Left Upper Arm] Pulse Oximetry 96 94 94 Oxygen Delivery Method 12/27/24 09:31 12/27/24 09:45 12/27/24 10:00 Temperature Pulse Rate 61 Pulse Rate [Right Radial] Respiratory Rate 16 12 15 Blood Pressure 149/74 H Blood Pressure [Left Upper Arm] Pulse Oximetry 94 Oxygen Delivery Method 12/27/24 10:02 12/27/24 10:03 12/27/24 10:15 Temperature Pulse Rate 58 L 59 L 63 Pulse Rate [Right Radial] Respiratory Rate 8 L 15 11 L Blood Pressure 141/73 H Blood Pressure [Left Upper Arm] Pulse Oximetry 94 93 95 Oxygen Delivery Method Room Air 12/27/24 10:30 12/27/24 10:32 12/27/24 10:45 Temperature Pulse Rate 63 58 L 68 Pulse Rate [Right Radial] Respiratory Rate 15 13 Blood Pressure 144/76 H Blood Pressure [Left Upper Arm] Pulse Oximetry 94 94 96 Oxygen Delivery Method 12/27/24 11:00 12/27/24 11:05 12/27/24 11:15 Temperature Pulse Rate 61 62 62 Pulse Rate [Right Radial] Respiratory Rate 16 Blood Pressure 148/83 H Blood Pressure [Left Upper Arm] Pulse Oximetry 95 95 97 Oxygen Delivery Method Room Air Course Vital Signs Vital signs: Initial Vital Signs Temperature 97.2 F L 12/27/24 08:58 Temperature Source Temporal Artery Scan 12/27/24 08:58 Pulse Rate 59 L 12/27/24 08:58 Pulse Rhythm Regular 12/27/24 08:58 Respiratory Rate 20 12/27/24 08:58 Blood Pressure 175/74 H 12/27/24 08:58 Blood Pressure Mean 107 H 12/27/24 08:58 Pulse Oximetry 96 12/27/24 08:58 Vital Signs Temperature 97.2 F L 12/27/24 08:58 Pulse Rate 59 L 12/27/24 08:58 Respiratory Rate 20 12/27/24 08:58 Blood Pressure 175/74 H 12/27/24 08:58 Pulse Oximetry 96 12/27/24 08:58 Temperature 97.2 F L 12/27/24 08:58 Pulse Rate 62 12/27/24 11:15 Respiratory Rate 16 12/27/24 11:05 Blood Pressure 148/83 H 12/27/24 11:05 Pulse Oximetry 97 12/27/24 11:15 Oxygen Delivery Method Room Air 12/27/24 11:05 Medications Administered Medications: Discontinued Medications Generic Name Dose Route Start Last Admin Trade Name Diane PRN Reason Stop Dose Admin Aspirin 324 mg 12/27/24 09:24 12/27/24 09:28 Aspirin 81 Mg Tab.Chew PO 12/27/24 09:25 324 mg ONCE ONE Administration MDM - Chest Pain MDM Narrative Medical decision making narrative: This patient comes in reporting an episode of chest pain that is now resolved. Her EKG shows a left bundle branch block. I was able to compare with previous EKG which also showed left bundle-branch block. The patient did receive aspirin 324 mg here. Lab results are acquired and troponin returns at 0.01 and repeat troponin is also normal. The patient continues to have no further symptoms. She is okay to be discharged home. Lab Data Labs: Lab Results 12/27/24 12/27/24 12/27/24 Range/Units 09:24 09:37 10:53 WBC 6.92 (4.50-11.00) K/uL RBC 4.52 (4.00-5.20) m/uL Hgb 13.9 (12.0-16.0) gm/dL Hct 42.3 (33.0-51.0) % MCV 94 (80-100) fL MCH 31 (26-34) pg MCHC 33 (32-36) gm/dL RDW Coeff of Ladi 14.4 (11.5-15.5) % Plt Count 238 (140-440) K/uL Neut % (Auto) 54.9 (42.0-72.0) % Lymph % (Auto) 25.3 (20-44) % Crockett % (Auto) 12.0 H (0.0-11.0) % Eos % (Auto) 6.4 (0.0-7.0) % Baso % (Auto) 1.3 (0.0-3.0) % Neut # (Auto) 3.80 (1.7-7.0) K/uL Lymph # (Auto) 1.75 (0.90-2.90) K/uL Crockett # (Auto) 0.80 (0.00-0.90) K/UL Eos # (Auto) 0.44 (0.00-0.50) K/uL Baso # (Auto) 0.09 (0.00-0.30) K/uL Abs Immat Gran (auto) 0.01 (0.00-0.30) K/uL Imm/Tot Granulo (auto) 0.1 % Sodium 138 (135-149) mmol/L Potassium 4.2 (3.6-5.1) mmol/L Chloride 103 (96-114) mmol/L Carbon Dioxide 31 (20-32) mmol/L Anion Gap 4 L (7-15) mEq/L BUN 21 (7-30) mg/dL Creatinine 0.6 (0.5-1.5) mg/dL Estimated Creat Clear 38.75 Estimated GFR 91 ml/min Glucose 102 (60-115) mg/dL Calcium 8.7 (8.4-10.6) mg/dL POC Troponin I 0.01 0.01 (0.01-0.04) ng/ml ECG Data Attestation: I personally reviewed and interpreted this ECG as follows: Interpretation: Sinus rhythm with occasional PVCs. Left bundle branch block. Rate is 70 beats per minute. Discharge Plan Discharge Clinical Impression: Atypical chest pain Patient Disposition: Home, Self-Care Condition: Improved Additional Instructions: Continue current plans. Follow up with MD or return if symptoms are recurrent or worsening. Prescriptions: No Action pravastatin 40 mg tablet Patient Comments: Take 1 Tablet (40 mg) by mouth at bedtime. Take with 20 mg tablet for total of 60 mg at bedtime. alendronate 70 mg tablet PO Patient Comments: Take 1 Tablet (70 mg) by mouth once a week in the morning. TAKE ON EMPTY STOMACH WITH FULL GLASS OF WATER. DO NOT LIE DOWN FOR 1 HOUR. levothyroxine 88 mcg tablet Patient Comments: TAKE ONE TABLET BY MOUTH ONE TIME DAILY famotidine 20 mg tablet 20 mg PO BID B12 1,000 mcg tablet 1,000 mcg PO QDAY Follow Up/Referrals: Ksenia Monaco MD [Primary Care Provider, Family Practice] Stand Alone Forms: [employer] Info Instructions
[2024-12-27] MEDS: ASPIRIN 81 MG TAB.CHEW 324 MG PO (09:28)
[2024-12-27 09:43] LABS: Basophils Absolute Auto 0.09 K/uL (0.00-0.30); Basophils Percent Auto 1.3 % (0.0-3.0); Eosinophils Absolute Auto 0.44 K/uL (0.00-0.50); Eosinophils Percent Auto 6.4 % (0.0-7.0); Hematocrit 42.3 % (33.0-51.0); Hemoglobin* 13.9 gm/dL (12.0-16.0); Immature Granulocytes Abs Auto 0.01 K/uL (0.00-0.30); Immature Granulocytes Pct Auto 0.1 %; Lymphocytes Absolute Auto 1.75 K/uL (0.90-2.90); Lymphocytes Percent Auto 25.3 % (20-44); Mean Corpuscular HGB Conc 33 gm/dL (32-36); Mean Corpuscular Hemoglobin 31 pg (26-34); Mean Corpuscular Volume 94 fL (80-100); Neutrophils Percent Auto 54.9 % (42.0-72.0); Platelet Count* 238 K/uL (140-440); RDW Coefficient of Variation % 14.4 % (11.5-15.5); Red Blood Count 4.52 m/uL (4.00-5.20); White Blood Count* 6.92 K/uL (4.50-11.00)
[2024-12-27 09:47] LABS: Slide Review Reflex No
[2024-12-27 09:50] LABS: Troponin, Point-of-Care* 0.01 ng/ml (0.01-0.04)
[2024-12-27 09:59] LABS: Chloride* 103 mmol/L (96-114); Sodium* 138 mmol/L (135-149)
[2024-12-27 10:00] LABS: Potassium* 4.2 mmol/L (3.6-5.1)
[2024-12-27 10:02] LABS: Blood Urea Nitrogen* 21 mg/dL (7-30); Creatinine* 0.6 mg/dL (0.5-1.5); Est. Creatinine Clearance* 38.75; Estimated Glomerular Filt Rate 91 ml/min
[2024-12-27 10:03] LABS: Anion Gap 4 mEq/L (7-15); Calcium* 8.7 mg/dL (8.4-10.6); Carbon Dioxide* 31 mmol/L (20-32); Glucose* 102 mg/dL (60-115)
[2024-12-27 11:23] LABS: Troponin, Point-of-Care* 0.01 ng/ml (0.01-0.04)
== END 2024-12-27 11:33 | disposition home or self-care (01) ==
PROVIDERS: Emergency Provider Emergency Medicine Emergency Medical Services; PCP Family Medicine
DX: R07.9 Chest pain, unspecified (principal)
CPT/HCPCS: 36415; 80048; 84484; 85025; 93005; 99284; A9270

== ENCOUNTER 2025-02-02 14:05 | Outpatient (CLI) | payer MEDICARE, OTHER, SELFPAY | END 2025-02-02 14:06 | disposition home or self-care (01) | PROVIDERS: PCP Family Medicine | DX: M79.661 Pain in right lower leg (principal) | CPT/HCPCS: 85379 ==

== ENCOUNTER 2025-04-26 07:46 | Emergency (ER) | payer MEDICARE, OTHER, SELFPAY ==
--- OUTSIDE RECORDS SUMMARY | 2025-04-16 09:53 | XMS_ITS | Encounter Summary ---
Author Organization [facility] Address [address] [place] [address] Care Team Providers Care Acid Wash Operator Name Role Phone Elsewhere, Pcp Primary Care Provider Unavailabl e Reason for Referral * Outpatient (Routine) - Closed Specialty Diagnoses / Procedures Referred By Contac t Referred To Contact Diagnoses Radiculopathy Lumbar Procedures FL Lumbar Spine Transforaminal Epidural Injection Bilateral Roula Proctor APRN, C.N.P., D.N.P. [address] [place] [address] Phone: tel: fax: [facility] Referral ID Status Reason Start Date Expiration Date Visits Re quested Visits Authorized [id number] Closed 03/10/2025 06/10/2026 1 1 Reason for Visit * Outpatient (Routine) - Closed Specialty Diagnoses / Procedures Referred By Contac t Referred To Contact Diagnoses Radiculopathy Lumbar Procedures FL Lumbar Spine Transforaminal Epidural Injection Bilateral Roula Proctor APRN, C.N.P., D.N.P. [address] [place] [phone] Phone: tel: fax: [facility] Referral ID Status Reason Start Date Expiration Date Visits Re quested Visits Authorized [id number] Closed 03/10/2025 06/10/2026 1 1 Encounter Details Date Type Department Care Team (Latest Contact Info) Description 04/16/2025 9:53 AM CDT - 04/16/2025 11:59 PM CDT Hospital Encounter Department of Radiology, [facility], in [place], [place] [address] [place] [phone] Roula Proctor APRN, C.N.P., D.N.P. [address] [place] [phone] Micah Nascimento M.D. [address] [place] [phone] Radiculopathy Lumbar Discharge Disposition: Home or Self Care Social History Tobacco Use Types Packs/Day Years Used Date Smoking Tobacco: Never Passive Smoke Exposure: Past Smokeless Tobacco: Never Passive Exposure Comments:un nova smoked in childhood Alcohol Use Standard Drinks/Week Comments Never 0 (1 standard drink = 0.6 oz pur e alcohol) Hunger Vital Sign Answer Date Recorded Within the past 12 months, y ou worried that your food would run out before you got the money to buy more. Never true 02/12/20 25 Within the past 12 months, t he food you bought just didn't last and you didn't have money to get more. Never true 02/11/2025 PRAPARE - Transportation Answer Date Re corded In the past 12 months, has l ack of transportation kept you from medical appointments or from getting medications? No 01/15 In the past 12 months, has l ack of transportation kept you from meetings, work, or from getting things needed for daily living? No 02/11/2025 [facility] Utilities Answer Date Recorded In the past 12 months has e electric, gas, oil, or water company threatened to shut off services in your home? No 02/11/2025 Housing Stability Answer Date Recorded What is your living situation today? I have [facility] place to live 02/11/2025 Comments Unknown Sex and Gender Information Value Date Recorded Sex Assigned at Female 09/17/2018 12:21 PM SOUND TESTER Legal Sex Female 10:57 AM SOUND TESTER Gender Identity Female 09/17/2018 12:21 PM SOUND TESTER Sexual Orientation Straight 09/17/2018 12 :21 PM SOUND TESTER documented as of this encounter Last Filed Vital Signs Vital Sign Reading Time Taken Comments Blood Pressure 126/66 04/16/2025 10:56 AM CDT Pulse 55 04/16/2025 10:56 AM CDT Temperature 36.5 C (97.7 F) 04/16/2025 10:16 AM CDT Respiratory Rate 18 04/16/2025 10:56 AM CDT Oxygen Saturation 96% 04/16/2025 10:56 AM CDT Inhaled Oxygen Concentration - - Weight - - Height - - Body Mass Index - - documented in this encounter Medications at Time of Discharge acetaminophen (TYLENOL) 500 mg tablet Take 1-2 tablets by mouth every 6 (six) hours as needed for pain. 12/20/2016 ascorbic acid, vitamin C, (Vitamin C) 1,000 mg tablet Take 1,000 mg by mouth 2 (two) times a day. 06/17/2013 CALCIUM CARBONATE ORAL Take 1,000 mg of calcium by mouth daily with morning meal. cholecalciferol (VITAMIN D3) 25 mcg (1,000 Unit) capsule Take 1 capsule by mouth daily. 05/03/2016 cyanocobalamin (VITAMIN B12) 1,000 mcg tablet Take 1,000 mcg by mouth daily. famotidine (PEPCID) 20 mg tablet Take 1 tablet by mouth daily. 05/20/2020 levothyroxine (SYNTHROID, LEVOTHROID) 88 mcg tablet Take 88 mcg by mouth daily. 07/11/2022 magnesium oxide (Mag-Ox) 250 mg of magnesium tablet Take 250 mg by mouth daily. multivitamin tablet Take 1 tablet by mouth daily. 10/11/2016 pravastatin (PRAVACHOL) 20 mg tablet Take 20 mg by mouth daily. Totaling 60mg daily 05/25/2022 pravastatin (PRAVACHOL) 40 mg tablet Take 40 mg by mouth daily. Totaling 60mg daily 05/24/2022 vitamin E 180 mg (400 Unit) capsule Take 180 mg by mouth once a week. documented as of this encounter Plan of Treatment Not on file documented as of this encounter Procedures Procedure Name Priority Date/Time Associated Diagnosis Comments FL LUMBAR SPINE TRANSFORAMINAL EPIDURAL INJECTION BILATERAL RAD - Routine (most inpatients and all outpatients) 04/16/2025 10:52 AM CDT Radiculopathy Lumbar documented in this encounter Results * FL Lumbar Spine Transforaminal Epidural Injection Bilateral (04/16/2025 10:52 AM CDT) Impressions [id number] - 04/16/2025 11:10 AM CDT Fluoroscopically-guided transforaminal epidural steroid injection. NR Narrative [id number] - 04/16/2025 11:10 AM CDT EXAM: FL LUMBAR SPINE TRANSFORAMINAL EPIDURAL INJECTION BILATERAL PROCEDURE: Fluoroscopically-guided Bilateral L5 Transforaminal Epidural Steroid Injection Pain Score: Pre-procedural pain was rated: 0/10 Post-procedural pain was rated: 0/10 Medications: Steroid: 15 mg dexamethasone Local anesthetic: 40 mg 2% lidocaine INDICATION: The patient reports the current pain syndrome to be of >1 year duration and presents today for a new injection. DIAGNOSIS: Radiculopathy, lumbar region. TECHNIQUE: The patient is an 79-year-old female who presents with chronic bilateral calf pain. Her symptoms first started in 2021 after a fall. Since then, she has had intermittent pain involving both calves, without radiation into her thighs or lower back. Imaging demonstrates mild multilevel spondylosis without clear source of her symptoms. Bilateral transforaminal injections at L5-S1 have been requested, which will be performed. On both sides: Using usual sterile technique, fluoroscopic guidance, and local anesthesia, a 4.75 inch 25-gauge spinal needle was advanced into the neural foramen using a supraneural approach. With final needle tip position, a small amount of iodinated contrast confirmed mostly central epidural flow on the left and mostly peripheral flow on the right without intrathecal uptake and with anteroposterior distribution which was not specifically assessed. Transient vascular uptake was not observed with final needle position. A test dose of preservative free lidocaine was administered. Following 2 minutes, there were no central neurologic changes. Dexamethasone was deposited in this location. The needle was cleared with lidocaine and removed. The patient experienced no complication. PREPROCEDURE: Patient seen and evaluated. Allergies, pertinent medications, and history reviewed. Discussed risks (including, but not limited to, bleeding, infection, nerve injury, and paralysis), benefits, alternatives for procedure, and obtained informed consent. The side and site of the procedure were marked, when applicable, at the time of consent. Patient understands information and questions answered. Immediately prior to starting the procedure, in the presence of the assisting personnel, procedural pause was conducted to verify correct patient identity and verification of procedure to be performed, and as applicable, correct side and site, correct patient position, availability of implants, special equipment, or special requirements, and all image and specimen identification data. The roles and responsibilities of care team members, residents, and fellows were discussed. Procedure Note Micah Nascimento M.D. - 04/16/2025 EXAM: FL LUMBAR SPINE TRANSFORAMINAL EPIDURAL INJECTION BILATERAL PROCEDURE: Fluoroscopically-guided Bilateral L5 Transforaminal EpiduralSteroid Injection Pain Score: Pre-procedural pain was rated: 0/10 Post-procedural pain was rated: 0/10 Medications: Steroid: 15 mg dexamethasone Local anesthetic: 40 mg 2% lidocaine INDICATION: The patient reports the current pain syndrome to be of >1year duration and presents today for a new injection. DIAGNOSIS: Radiculopathy, lumbar region. TECHNIQUE: The patient is an 79-year-old female who presents with chronic bilateralcalf pain. Her symptoms first started in 2021 after a fall. Since then,she has had intermittent pain involving both calves, without radiationinto her thighs or lower back. Imaging demonstrates mild multilevelspondylosis without clear source of her symptoms. Bilateral transforaminalinjections at L5-S1 have been requested, which will be performed. On both sides: Using usual sterile technique, fluoroscopic guidance, andlocal anesthesia, a 4.75 inch 25-gauge spinal needle was advanced into theneural foramen using a supraneural approach. With final needle tipposition, a small amount of iodinated contrast confirmed mostly centralepidural flow on the left and mostly peripheral flow on the right withoutintrathecal uptake and with anteroposterior distribution which was notspecifically assessed. Transient vascular uptake was not observed withfinal needle position. A test dose of preservative free lidocaine wasadministered. Following 2 minutes, there were no central neurologicchanges. Dexamethasone was deposited in this location. The needle wascleared with lidocaine and removed. The patient experienced nocomplication. PREPROCEDURE: Patient seen and evaluated. Allergies, pertinentmedications, and history reviewed. Discussed risks (including, but notlimited to, bleeding, infection, nerve injury, and paralysis), benefits,alternatives for procedure, and obtained informed consent. The side andsite of the procedure were marked, when applicable, at the time ofconsent. Patient understands information and questions answered.Immediately prior to starting the procedure, in the presence of theassisting personnel, procedural pause was conducted to verify correctpatient identity and verification of procedure to be performed, and asapplicable, correct side and site, correct patient position, availabilityof implants, special equipment, or special requirements, and all image andspecimen identification data. The roles and responsibilities of care teammembers, residents, and fellows were discussed. IMPRESSION: Fluoroscopically-guided transforaminal epidural steroid injection. NR us Roula Nova APRN, C.N.P., D.N.P. IMG FLUOROSCOPY PROCEDURES Final Result [id number] NA documented in this encounter Visit Diagnoses Diagnosis Radiculopathy Lumbar documented in this encounter Administered Medications Inactive Administered Medications - up to 3 most recent administrations Medication Order MAR Action Action Date Dose Rate Site dexAMETHasone (PF) injection (Decadron) As needed, Starting on Stephanie 04/16/25 at 1049, Intra-Op Given 04/16/2025 10:49 AM CDT 15 mg Back iohexoL 300 mg iodine/mL solution (Omnipaque) As needed, Starting on Stephanie 04/16/25 at 1046, Intra-Op Given 04/16/2025 10:46 AM CDT 2 mL Back lidocaine (PF) 20 mg/mL (2 %) injection (Xylocaine) As needed, Starting on Stephanie 04/16/25 at 1048, Intra-Op Given 04/16/2025 10:48 AM CDT 2 mL Back lidocaine 10 mg/mL (1 %) injection (Xylocaine) As needed, Starting on Stephanie 04/16/25 at 1044, Intra-Op Given 04/16/2025 10:44 AM CDT 5 mL Back documented in this encounter Care Teams Acid Wash Operator Relationship Specialty Start Date End Date Elsewhere, Pcp PCP - General Internal Medicine 02/11/25 documented as of this encounter
[2025-04-26] VITALS (7 sets, daily range): BP systolic 112–151; BP diastolic 64–93; PULSE 59–75; RESP 16–18; TEMP 36.7; O2SAT 93–97; BMI 27.5
--- OUTSIDE RECORDS SUMMARY | 2025-04-26 07:48 | XMS_ITS | Clinical Summary ---
Author Organization [facility] Address [address] [place] [id number] Care Team Providers Care Grinder Chipper Name Role Phone Ksenia Monaco MD Primary [...] hr. 12 Tablet 3 08/18/19 25 Active VITAMIN E ACETATE ORAL Take by mouth. Activ e Active Problems Problem Noted Date Diagnosed Date [...] Encounters Date Type Department Care Team Description 03/11/2025 Orders Only [facility] Scanner 1 scan: (1-Ord) INCOMING RECORDS-MRI, [facility], 03/11/2025 03/11/2025 Orders Only [facility] Scanner 1 scan: (1-Ord) INCOMING RECORDS-US, [facility], 03/11/2025 03/11/2025 Orders Only [facility] Scanner 1 scan: (1-Ord) INCOMING RECORDS-EMG, [facility], 03/11/2025 02/11/2025 10:30 AM CDT Office Visit [facility] [address] [place] [address] Ksenia Monaco MD Follow Up ( 01/22/25 and 02/02/25 First was chest pain and the second one was for knee pain) 02/11/2025 Travel 02/06/2025 Travel 02/02/2025 Orders Only [facility] Scanner 1 scan: (1-Ord) [facility], 02/02/2025 from Last 3 Months Immunizations Immunization Administration [...] on file Legal Sex Female 8:37 AM BUSINESS LAW PROFESSOR Gender Identity Not on file Sexual Orientation [...] Sign Reading Time Taken Comments Blood Pressure 128/71 02/11/2025 10:18 AM CDT Pulse 61 02/11/2025 10:18 AM CDT Temperature 36.6 C (97.8 F) 03/25/2024 1:56 PM CDT Respiratory Rate 20 03/19/2022 12:13 PM CDT Oxygen Saturation 95% 02/11/2025 10:18 AM CDT Inhaled Oxygen Concentration - - Weight 72.6 kg (160 lb) 02/11/2025 10:18 AM CDT Height 161.3 cm (5' 3.5) 05/29/2024 2:09 PM BUSINESS LAW PROFESSOR Body Mass Index 27.9 05/29/2024 2:09 PM BUSINESS LAW PROFESSOR Plan of Treatment Health Maintenance Due Date Last Done Comments COVID-19 vaccine series ( season) 2025 04/08/2024, 04/16/2023, 01/01/2023, Additional history exists Influenza Vaccine (#1) 2025 , 03/30/2020, 04/09/2019, Additional history exists BMI (ht and wt [...] RSV vaccine for adults or Completed 05/03/2023 DEXA/DXA scan for age 65+ Completed 2024, 06/05/2022, 06/03/2020, Additional history exists Procedures Procedure Name Priority Date/Time Associated Diagnosis Comments SCAN CORRESP-IMAGING 03/11/2025 12:00 AM CDT SCAN CORRESP-IMAGING 03/11/2025 12:00 AM CDT SCAN CORRESP-DIAGNOSTICS 03/11/2025 12:00 AM CDT SCAN-LABORATORY REPORT 02/02/2025 12:00 AM CDT XR DXA BONE DENSITY 2 SITES AXIAL Routine 08/04/2024 9:47 AM BUSINESS LAW PROFESSOR Menopause from Last 3 Months or Most Recently Relevant to Health Maintenance Results * SCAN CORRESP-DIAGNOSTICS (03/11/2025 12:00 AM CDT) us Scanner OTHER Final Result * SCAN CORRESP-IMAGING (03/11/2025 12:00 AM CDT) Only the most recent of2 resultswithin the time period is included. Anatomical Region Laterality Modality Other us Scanner OTHER Final Result * SCAN-LABORATORY REPORT (02/02/2025 12:00 AM CDT) us Scanner OTHER Final Result * (ABNORMAL) XR DXA BONE DENSITY 2 SITES AXIAL (08/04/2024 9:47 AM BUSINESS LAW PROFESSOR) Anatomical Region Laterality Modality Spine, HIPS, HIPL, HIPR Other Impressions 08/05/2024 8:13 AM BUSINESS LAW PROFESSOR Osteoporosis. RECOMMENDATIONS: The National Osteoporosis Foundation recommends [...] neck) despite reported use of Fosamax. Keshia Symth PA-C [facility] 08/05/2024 Narrative 08/05/2024 8:13 AM BUSINESS LAW PROFESSOR For Patients: Results are automatically released to your [employer] [facility] account once available, in compliance with federal regulations. This means that you may see your results before your provider has had a chance to review them. Please allow 2-3 business days for your provider to comment on the results. XR DXA Bone Mineral Density (BMD) EXAM LOCATION: [address] [address] PATIENT NAME: Norma Alberts DATE OF : [...] two scanners are made by the same gas appliance installer. PROCEDURE: Dual-energy x-ray absorptiometry performed with routine [...] Most Recently Relevant to Health [place] [address] [employer] MEDICARE PART B HB ONLY [employer] [facility] PB ONLY Advance Directives Documents on File Type Date Recorded Patient Etymology Teacher Expl anation Healthcare Directive 04/30/2017 3:47 PM Juan Pablo [place]. 1945 Care Teams Grinder Chipper Relationship Specialty Start Date End Date Ksenia Monaco MD PCP - General Family Practice 10/14/20
--- OUTSIDE RECORDS SUMMARY | 2025-04-26 07:48 | XMS_ITS | Clinical Summary ---
Author Organization [facility] Address [address] [place] [address] Care Team Providers Care Furniture Fabricator Name Role Phone Elsewhere, Pcp Primary Care Provider Unavailabl e Source Comments Patient records contain information from all sites at [facility]. For routine questions regarding patient records, call [phone] during business hours, M-F 8:00 AM - 5:00 PM Central Time. Record requests for emergency care only can be directed to [phone] at any time.[facility] Allergies No known active allergies Medications * This document contains information received from the source organization and may not represent a complete record from that organization. pravastatin (PRAVACHOL) 40 mg tablet Take 40 mg by mouth daily. Totaling 60mg daily 05/24/2022 Active pravastatin (PRAVACHOL) 20 mg tablet Take 20 mg by mouth daily. Totaling 60mg daily 05/25/2022 Active multivitamin tablet Take 1 tablet by mouth daily. 10/11/2016 Active levothyroxine (SYNTHROID, LEVOTHROID) 88 mcg tablet Take 88 mcg by mouth daily. 07/11/2022 Active famotidine (PEPCID) 20 mg tablet Take 1 tablet by mouth daily. 05/20/2020 Active cholecalciferol (VITAMIN D3) 25 mcg (1,000 Unit) capsule Take 1 capsule by mouth daily. 05/03/2016 Active ascorbic acid, vitamin C, (Vitamin C) 1,000 mg tablet Take 1,000 mg by mouth 2 (two) times a day. 06/17/2013 Active acetaminophen (TYLENOL) 500 mg tablet Take 1-2 tablets by mouth every 6 (six) hours as needed for pain. 12/20/2016 Active CALCIUM CARBONATE ORAL Take 1,000 mg of calcium by mouth daily with morning meal. Active cyanocobalamin (VITAMIN B12) 1,000 mcg tablet Take 1,000 mcg by mouth daily. Active magnesium oxide (Mag-Ox) 250 mg of magnesium tablet Take 250 mg by mouth daily. Active vitamin E 180 mg (400 Unit) capsule Take 180 mg by mouth once a week. Active Active Problems No known active problems Encounters Date Type Department Care Team Description 04/16/2025 9:53 AM CDT - 04/16/2025 11:59 PM CDT Hospital Encounter Department of Radiology, [facility] in [place], [place] [address] [place] [phone] Janell Guerrero APRN, C.N.P., D.N.P. Micah Nascimento M.D. Radiculopathy Lumbar Discharge Disposition: Home or Self Care 03/10/2025 Clinical Communication Department of Physical Medicine and Rehabilitation in [place], [place] [address] [place] [phone] Janell Guerrero APRN, C.N.P., D.N.P. 03/09/2025 Results Follow-Up Department of Physical Medicine and Rehabilitation in [place], [place] [address] [place] [phone] Janell Guerrero APRN, C.N.P., D.N.P. Lower Extremity Arterial (ALYSSA) - Standard Protocol 03/09/2025 Results Follow-Up Department of Physical Medicine and Rehabilitation in [place], [place] [address] [place] [phone] Janell Guerrero APRN, C.N.P., D.N.P. EMG, MR Lumbar Spine without IV Contrast 03/06/2025 Clinical Communication Department of Vascular Medicine in [place], [place] [address] [place] [phone] Alin Montes De Oca M.D. 03/05/2025 3:12 PM CDT - 03/05/2025 11:59 PM CDT [facility] [place] [place] [address] [place] [address] Janell Guerrero APRN, C.N.P., D.N.P. Radiculopathy Lumbar Discharge Disposition: Home or Self Care 03/05/2025 1:00 PM CDT Comprehensive Visit Department of Vascular Medicine in [place], [place] [address] [place] [phone] Alin Montes De Oca M.D. Varicose Vein Lower Extremity Bilateral (Primary Dx) 03/05/2025 9:00 AM CDT - 03/05/2025 3:11 PM CDT Hospital Encounter Department of Vascular Medicine in [place], [place] [address] [place] [phone] Janell Guerrero APRN, C.N.P., D.N.P. Pain Leg Right; Pain Leg Left Discharge Disposition: Home or Self Care 03/05/2025 6:49 AM CDT - 03/05/2025 8:59 AM CDT Hospital Encounter Department of Neurology in [place], [place] [address] [place] [phone] Janell Guerrero APRN, C.N.P., D.N.P. Pain Leg Right; Pain Leg Left Discharge Disposition: Home or Self Care 02/13/2025 1:00 PM CDT Comprehensive Visit Department of Physical Medicine and Rehabilitation in [place], [place] [address] [place] [phone] Janell Guerrero APRN, C.N.P., D.N.P. Radiculopathy Lumbar (Primary Dx); Pain Low Back Unspecified; Pain Leg Right; Pain Leg Left 02/13/2025 9:54 AM CDT - 02/13/2025 11:59 PM CDT Hospital Encounter Department of Radiology, [facility] in [place], [place] [address] [place] [address] Jovanni Horn M.D. Radiculopathy Lumbar Discharge Disposition: Home or Self Care 02/12/2025 Orders Only Department of Physical Medicine and Rehabilitation in [place], [place] [address] [place] [phone] Janell Guerrero APRN, C.N.P., D.N.P. 02/11/2025 7:45 AM CDT Clinical Communication Virtual Review in [place], [place] [address] [place] [phone] Pre-visit Intake from Last 3 Months Social History Tobacco Use Types Packs/Day Years [...] things needed for daily living? No 02/11/2025 [facility] Utilities Answer Date Recorded In the past 12 months has e electric, gas, oil, or water company threatened to shut off services in your home? No 02/11/2025 Housing Stability Answer Date Recorded What is your living situation today? I have a [facility] place to live 02/11/2025 Comments Unknown Sex and Gender Information Value Date Recorded Sex Assigned at Female 09/17/2018 12:21 PM WIRE STRAIGHTENER Legal Sex Female 10:57 AM WIRE STRAIGHTENER Gender Identity Female 09/17/2018 12:21 PM WIRE STRAIGHTENER Sexual Orientation Straight 09/17/2018 12 :21 PM WIRE STRAIGHTENER Last Filed Vital Signs Vital Sign Reading Time Taken Comments Blood Pressure 126/66 04/16/2025 10:56 AM CDT Pulse 55 04/16/2025 10:56 AM CDT Temperature 36.5 C (97.7 F) 04/16/2025 10:16 AM CDT Respiratory Rate 18 04/16/2025 10:56 AM CDT Oxygen Saturation 96% 04/16/2025 10:56 AM CDT Inhaled Oxygen Concentration - - Weight 73.5 kg (162 lb 0.6 oz) 03/05/2025 12:55 PM CDT Height 161.2 cm (5' 3.47) 03/05/2025 12:55 PM C DT Body Mass Index 28.28 03/05/2025 12:55 PM CDT Plan of Treatment Health Maintenance Due Date Last Done Comments Depression Screening (Annual PHQ-2) 07/16/2024 Thyroid Stimulating Hormone (TSH) test for thyroid function 01/06/2025 01/07/2024, 10/17/2022, 02/15/2022, Additional history exists COVID-19 Vaccine ( season) 2025 03/25/2025, 04/08/2024, 04/16/2023, Additional history exists DTaP,Tdap,and Td Vaccines (4 - Td or Tdap) 06/01/2033 06/01/2023, 09/19/2018, 08/28/2007 Pneumococcal vaccine (50+ years) Completed 02/08/2015, 08/04/2014, 06/29/2009 Zoster Vaccines Completed 03/16/2019, 10/14, 08/26/2018, Additional history exists RSV vaccine - (32-36 weeks) or 50+ years Completed 05/03/2023 Bone Density Scan (Osteoporosis Screen) Discontinued 08/04/2024 Mammogram Discontinued 08/04/2024, 02/2024, 06/19/2022, Additional history exists Influenza Vaccine Completed 03/25/2025, , 04/16/2023, Additional history exists Fall Risk Screen (Annual) Completed 04/16/2025 IPV Vaccines Aged Out No longer eligi ble based on patient's age to complete this topic Medical Devices Implanted Type Area Fire Warden Device Identifier Shelf Expiration Date Model / Serial / Lot Conversions - Default Historical Implant Device Implanted:12/15 (Quantity not on file) Hardware e.g. pins/screws /rods Right: Wrist Description:Body Location - Wrist R. Device Status Text - Hardware. PLACED AT EXTERNAL FACILITY. UNKNOWN DATE. Trilogy-Screw 6.5x25 - Elder [id number] Implanted:Qty: 1 on 12/18/2016 Hardware e.g. pins/screws /rods [employer] Description:Device Manufactu rer - Brielle. Device Status Text - [id number]. Trilogy-Screw 6.5x30 - Elder [id number] Implanted:Qty: 1 on 12/18/2016 Hardware e.g. pins/screws /rods [employer] Description:Device Manufactu rer - Brielle. Device Status Text - [id number]. Conversions - Default Historical Implant Device Implanted:12/15 (Quantity not on file) Hip Implant Right: Hip Description:Body Location - Hip R. Device Status Text - Hip Imp. Stem Distal Straight 18mm X130 - Elder [id number] Implanted:Qty: 1 on 12/18/2016 Hip Implant Other/Legacy - See Implant Description Other/Legacy - See Implant Description Description:Device Manufactu Weave. Body Location - Other. Right. Device Status Text - [id number] [id number]. Biolox Delta Ceramic Head 28mm - Elder [id number] Implanted:Qty: 1 on 12/18/2016 Hip Implant Other/Legacy - See Implant Description Other/Legacy - See Implant Description Description:Device Manufactu Weave. Body Location - Other. Right. Device Status Text - [id number] [id number]. Biomet-Liner G7 Irineo [place] 44mm F - Elder [id number] Implanted:Qty: 1 on 12/18/2016 Hip Implant Other/Legacy - See Implant Description BioMet Description:Device Manufactu [employer] Body Location - Other. Right. Device Status Text - [id number] [id number]. Biomet-Shell G7 Irineo [place] 56mm F - Elder [id number] Implanted:Qty: 1 on 12/18/2016 Hip Implant Other/Legacy - See Implant Description BioMet Description:Device Manufactu [employer] Body Location - Other. Right. Device Status Text - [id number] [id number]. Proximal Body With [place] Offset 65mm - Elder [id number] Implanted:Qty: 1 on 12/18/2016 Hip Implant Other/Legacy - See Implant Description Other/Legacy - See Implant Description Description:Device Manufactu Weave. Body Location - Other. Right. Device Status Text - [id number] [id number]. Biomet-Bearing Arcom Xl 28 X 44mm - Elder [id number] Implanted:Qty: 1 on 12/18/2016 Hip Implant Other/Legacy - See Implant Description BioMet Description:Device Manufactu rer - [employer] Inc. Body Location - Other. Right. Device Status Text - [id number] [id number]. Procedures Procedure Name Priority Date/Time Associated Diagnosis Comments FL LUMBAR SPINE TRANSFORAMINAL EPIDURAL INJECTION BILATERAL RAD - Routine (most inpatients and all outpatients) 04/16/2025 10:52 AM CDT Radiculopathy Lumbar MR LUMBAR SPINE WITHOUT IV CONTRAST RAD - Routine (most inpatients and all outpatients) 03/05/2025 5:36 PM CDT Radiculopathy Lumbar LOWER EXTREMITY ARTERIAL - STANDARD PROTOCOL Routine 03/05/2025 10:07 AM CDT Pain Leg Right Pain Leg Left EMG Routine 03/05/2025 6:49 AM CDT Pain Leg Right Pain Leg Left DX LUMBAR SPINE 2-3 VIEWS RAD - Routine (most inpatients and all outpatients) 02/13/2025 10:16 AM CDT Radiculopathy Lumbar from Last 3 Months Results * FL Lumbar Spine Transforaminal Epidural Injection Bilateral (04/16/2025 10:52 AM CDT) Impressions [id number] - 04/16/2025 11:10 AM CDT Fluoroscopically-guided transforaminal epidural steroid injection. NR Narrative [id number] - 04/16/2025 11:10 AM CDT EXAM: FL [...] IMPRESSION: Fluoroscopically-guided transforaminal epidural steroid injection. NR Janell Nova APRN, C.N.P., D.N.P. IMG FLUOROSCOPY PROCEDURES Final Result [id number] NA * MR Lumbar Spine without IV Contrast (03/05/2025 5:36 PM CDT) Anatomical Region Laterality Modality Lumbar Spine, Neuroradiology RST LOS, Neuroradiology ARZ LOS, Neuroradiology FLA LOS N/A Magnetic Resonance Impressions 03/06/2025 12:01 PM CDT Moderate to advanced facet degenerative changes greatest at lower lumbar spine. L4-5 moderate spinal canal stenosis. Narrative 03/06/2025 12:01 PM CDT EXAM: MR LUMBAR SPINE WITHOUT IV CONTRAST COMPARISON: Lumbar spine radiographs 02/13/2025. No prior lumbar spine MRIs or CTs available. FINDINGS: Five lumbar type vertebral bodies. As on radiographs, right convex lumbar curve with its apex at L2. Exam somewhat motion degraded. Moderate to advanced facet degenerative changes throughout the lumbar spine, greatest inferiorly. At L4-5 there is mild L4 on L5 anterolisthesis with a small bulging/uncovered disc mildly flattening ventral thecal sac. Advanced facet and ligamentum flavum hypertrophy contribute to moderate spinal canal stenosis at L4-5 with appearance of bilateral lateral recess narrowing adjacent to traversing L5 nerve roots (11/14). Mild left L4-5 neural foraminal stenosis. Spinal canal widely patent at remaining lumbar levels. Small disc bulges at L1- L3. No significant neural foraminal stenoses. Conus terminates at L1 and appears normal allowing for motion. Procedure Note Carlos Villarreal Jr., M.D., Ph.D. - 03/06/2025 EXAM: MR LUMBAR SPINE WITHOUT IV CONTRAST COMPARISON: Lumbar spine radiographs 02/13/2025. No prior lumbar spineMRIs or CTs available. FINDINGS: Five lumbar type vertebral bodies. As on radiographs, rightconvex lumbar curve with its apex at L2. Exam somewhat motion degraded. Moderate to advanced facet degenerative changes throughout the lumbarspine, greatest inferiorly. At L4-5 there is mild L4 on L5 anterolisthesis with a smallbulging/uncovered disc mildly flattening ventral thecal sac. Advancedfacet and ligamentum flavum hypertrophy contribute to moderate spinalcanal stenosis at L4-5 with appearance of bilateral lateral recess narrowing adjacent to traversing L5 nerve roots (11/14).Mild left L4-5 neural foraminal stenosis. Spinal canal widely patent at remaining lumbar levels. Small disc bulgesat L1- L3. No significant neural foraminal stenoses. Conus terminates at L1and appears normal allowing for motion. IMPRESSION: Moderate to advanced facet degenerative changes greatest at lower lumbarspine. L4-5 moderate spinal canal stenosis. Result [facility] Janell Nova APRN, C.N.P., D.N.P. IMG MRI PROCEDURES Final Result * LOWER EXTREMITY ARTERIAL - STANDARD PROTOCOL (03/05/2025 10:07 AM CDT) Anatomical Region Laterality Modality Other 03/05/2025 9:00 AM CDT Narrative 03/05/2025 10:50 AM CDT Right: Doppler Waveforms: Normal at all levels evaluated. Resting Index: ALYSSA (PT)- 1.05 ALYSSA (DP)- 0.97 TBI- 0.57 Left: Doppler Waveforms: Normal at all levels evaluated. Resting Index: ALYSSA (PT)- 1.04 ALYSSA (DP)- 0.96 TBI- 0.60 General: Changed from exercise to standard due to patient movement/restless legs. Conclusions: Normal study. No arterial obstruction in either lower extremity. No prior study for comparison. Procedure Note Jama Maciel M.D. - 03/05/2025 Right: Doppler Waveforms: Normal at all levels evaluated. RestingIndex: ALYSSA (PT)- 1.05 ALYSSA (DP)- 0.97 TBI- 0.57 Left: Doppler Waveforms: Normal at all levels evaluated. RestingIndex: AYLSSA (PT)- 1.04 ALYSSA (DP)- 0.96 TBI- 0.60 General: Changed from exercise to standard due to patientmovement/restless legs. Conclusions: Normal study. No arterial obstruction in either lowerextremity. No prior study for comparison. Janell Nova APRN C.N.P., D.N.P. CV V ASCULAR PROCEDURES Final Result * EMG (03/05/2025 6:49 AM CDT) 03/05/2025 7:30 AM CDT Narrative [facility] EM[facility] - 03/05/2025 8:38 AM CDT Table formatting from the original result was not included. 05-Mar-2025 Electromyography Final Report Study Number: 1 EMG Radiator Specialist: Chel Valentin 127 or [phone] Referred by: JANELL GUERRERO V. (127 or [phone]) Referred for: lower leg pains bilaterally, worse with standing and walking Referral Code: 022 RX: [id number] SUMMARY: Prior to starting the procedure, the patient's identity was verified, pertinent available records were reviewed, the nature of the procedure was explained, the appropriate sites of the exam were confirmed directly with the patient, and a pre-procedure pause was performed for final verification of all of the above. Nerve conduction studies demonstrated reduced amplitude of bilateral tibial compound muscle action potentials. Sural response was preserved. Needle EMG was limited by poor activation. There were long duration, high amplitude motor unit potentials in distal muscles. There were no fibrillation potentials observed. There was a motor unit induced repetitive discharge in the right medial gastrocnemius. CLINICAL INTERPRETATION: This is an abnormal study. In this clinical context, electrophysiologic evidence most likely represents dynamic intermittent compression involving the right L5-S1 nerve roots as can be seen in spinal stenosis. Imaging correlation advised. Preserved sural sensory response and asymmetry of symptoms make a length- dependent large fiber peripheral neuropathy less likely. Whitney Valentin (127 or [phone])/SMB NERVE CONDUCTIONS Record Rep Normal Normal Distal Normal F-Wave F-Wave Temp Nerve Type Site Stim Side Amp Amp CV CV Lat Lat Lat Est ( C) Fibular Motor EDB R 2.1 (> 2.0) 45 (> 41) 4.5 (< 6.6) 29.1 Remark: Moved G1 Tibial Motor AH L 3.4 (> 4.0) 41 (> 40) 4.4 (< 6.1) 30.1 Tibial Motor AH R 2.8 (> 4.0) 43 (> 40) 4.0 (< 6.1) 29.1 Sural Sensory Ankle R 6 (> 0.0) 42 (> 40) 4.4 (< 4.5) 29.3 NEEDLE EMG Ins Spont MUP Recruitment Duration Amplitude Phases Muscle Side Act Fib Fasc Normal Activ Reduced Rapid Long Short High Low % Turns L5 paraspinal R NL 0 0 NL Gluteus david R NL 0 0 NL Gluteus medius R NL 0 0 NL Vastus medialis R NL 0 0 NL Poor + Gastrocnemius (medial head) R NL 0 0 Poor + + Comment: MIRD Tibialis anterior R NL 0 0 + + Comment: burst activation This interpretation has been electronically signed: Chel Valentin M.D. at 03/05/2025 8:35:04 AM CDT Procedure Note Chel Valentin M.D. - 03/05/2025 05-Mar-2025 Electromyography Final Report Study Number: 1 EMG Radiator Specialist: Chel Valentin 127 or [phone] Referred by: JANELL GUERRERO V. (127 or [phone]) Referred for: lower leg pains bilaterally, worse with standing andwalking Referral Code: 022 RX: [id number] SUMMARY: Prior to starting the procedure, the patient's identity wasverified, pertinent available records were reviewed, the nature of theprocedure was explained, the appropriate sites of the exam were confirmeddirectly with the patient, and a pre-procedure pause was performed forfinal verification of all of the above. Nerve conduction studies demonstrated reduced amplitude of bilateraltibial compound muscle action potentials. Sural response was preserved. Needle EMG was limited by poor activation. There were long duration, highamplitude motor unit potentials in distal muscles. There were nofibrillation potentials observed. There was a motor unit inducedrepetitive discharge in the right medial gastrocnemius. CLINICAL INTERPRETATION: This is an abnormal study. In this clinicalcontext, electrophysiologic evidence most likely represents dynamicintermittent compression involving the right L5-S1 nerve roots as can beseen in spinal stenosis. Imaging correlation advised. Preserved suralsensory response and asymmetry of symptoms make a length-dependent largefiber peripheral neuropathy less likely. Whitney Valentin (127 or [phone])/SMB NERVE CONDUCTIONS Record Rep Normal Normal Distal Normal F-Wave F-Wave Temp Nerve Type Site Stim Side Amp Amp CV CV Lat Lat Lat Est ( C) Fibular Motor EDB R 2.1 (> 2.0) 45 (> 41) 4.5 (< 6.6) 29.1 Remark: Moved G1 Tibial Motor AH L 3.4 (> 4.0) 41 (> 40) 4.4 (< 6.1) 30.1 Tibial Motor AH R 2.8 (> 4.0) 43 (> 40) 4.0 (< 6.1) 29.1 Sural Sensory Ankle R 6 (> 0.0) 42 (> 40) 4.4 (< 4.5) 29.3 NEEDLE EMG Ins Spont MUP Recruitment Duration Amplitude Phases Muscle Side Act Fib Fasc Normal Activ Reduced Rapid Long Short High Low %Turns L5 paraspinal R NL 0 0 NL Gluteus david R NL 0 0 NL Gluteus medius R NL 0 0 NL Vastus medialis R NL 0 0 NL Poor + Gastrocnemius (medial head) R NL 0 0 Poor + + Comment: MIRD Tibialis anterior R NL 0 0 + + Comment: burst activation This interpretation has been electronically signed: MarianneT. Valentin M.D. at 03/05/2025 8:35:04 AM CDT us Janell Nova APRN, C.N.P., D.N.P. NEUROLOGY ORDERABLES Edited Result - Final [facility] EMG * DX Lumbar Spine 2-3 Views (02/13/2025 10:16 AM CDT) Anatomical Region Laterality Modality Lumbar Spine, Musculoskeleta l RST LOS, Neuroradiology ARZ LOS, Muskuloskeletal FLA LOS N/A Digital Radiography Impressions 02/13/2025 10:56 AM CDT Rightward thoracolumbar scoliosis. Multilevel lumbar degenerative disc disease with associated hypertrophic changes, facet arthropathy, and low-grade subluxations. 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 Right FABIOLA. Osteopenia. Narrative 02/13/2025 10:56 AM CDT EXAM: DX LUMBAR SPINE 2-3 VIEWS Procedure Note Zeina Ivy M.D. - 02/13/2025 EXAM: DX LUMBAR SPINE 2-3 VIEWS IMPRESSION: Rightward thoracolumbar scoliosis. Multilevel lumbar degenerative discdisease with associated hypertrophic changes, facet arthropathy, andlow-grade subluxations. 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 Osteopenia. Jovanni [facility] PROCEDURES Final Result from Last 3 Months Insurance MEDICARE MEDIC Advance Directives For more information, please contact: [phone] Documents on File Type Date Recorded Patient Clinical Athletic Instructor Expl anation Advance Directives 08/25/2016 12:00 AM Leg acy document. See document viewer. Care Teams Furniture Fabricator Relationship Specialty Start Date End Date Elsewhere, Pcp PCP - General Internal Medicine 02/11/25
--- OUTSIDE RECORDS SUMMARY | 2025-04-26 07:49 | XMS_ITS | Encounter Summary ---
Author Organization [facility] Address [address] [place] [address] Care Team Providers Care Director Of Rehabilitation And Wellness Name Role Phone Elsewhere, Pcp Primary Care Provider Unavailabl e Encounter Details Date Type Department Care Team (Latest Contact Info) Description 03/09/2025 Results Follow-Up Department of Physical Medicine and Rehabilitation in [place], [place] [address] [place] [address] Roula Proctor V., WORSHIP PASTOR, C.N.P., D.N.P. [address] [place] [address] Lower Extremity Arterial (ALYSSA) - Standard Protocol Social History Tobacco Use Types Packs/Day Years [...] things needed for daily living? No 02/11/2025 [facility] Utilities Answer Date Recorded In the past 12 months has th e electric, gas, oil, or water company threatened to shut off services in your home? No 02/11/2025 Housing Stability Answer Date Recorded What is your living situation today? I have a [facility] place to live 02/11/2025 Comments Unknown Sex and Gender Information Value Date Recorded Sex Assigned at Female 09/17/2018 12:21 PM SECURITY LEAD Legal Sex Female 10:57 AM SECURITY LEAD Gender Identity Female 09/17/2018 12:21 PM SECURITY LEAD Sexual Orientation Straight 09/17/2018 12 :21 PM SECURITY LEAD documented as of this encounter Miscellaneous Notes * Result Encounter Note - Roula Proctor APRN, C.N.P., D.N.P. - 03/09/2025 7:16 AM CDT Dear Ms. Alberts, The lower extremity arterial test is normal . These results will be further discussed during your consult visit with Vascular Medicine. documented in this encounter Plan of Treatment Not on file documented as of this encounter Visit Diagnoses Not on filedocumented in this encounter Care Teams Director Of Rehabilitation And Wellness Relationship Specialty Start Date End Date Elsewhere, Pcp PCP - General Internal Medicine 02/11/25 documented as of this encounter
--- OUTSIDE RECORDS SUMMARY | 2025-04-26 07:49 | XMS_ITS | Encounter Summary ---
Author Organization [facility] Address [address] [place] [address] Care Team Providers Care Hemmer Automatic Name Role Phone Elsewhere, Pcp Primary Care Provider Unavailabl e Encounter Details Date Type Department Care Team (Latest Contact Info) Description 03/10/2025 Clinical Communication Department of Physical Medicine and Rehabilitation in [place], [place] [address] [place] [address] Roula Proctor V., CENTRAL OFFICE TECHNICIAN, C.N.P., D.N.P. [address] [place] [address] Social History Tobacco Use Types Packs/Day Years [...] things needed for daily living? No 02/11/2025 [facility] Utilities Answer Date Recorded In the past 12 months has th e electric, gas, oil, or water company threatened to shut off services in your home? No 02/11/2025 Housing Stability Answer Date Recorded What is your living situation today? I have a [facility] place to live 02/11/2025 Comments Unknown Sex and Gender Information Value Date Recorded Sex Assigned at Female 09/17/2018 12:21 PM STRAINER CLEANER Legal Sex Female 10:57 AM STRAINER CLEANER Gender Identity Female 09/17/2018 12:21 PM STRAINER CLEANER Sexual Orientation Straight 09/17/2018 12 :21 PM STRAINER CLEANER documented as of this encounter Plan of Treatment Not on file documented as of this encounter Visit Diagnoses Not on filedocumented in this encounter Care Teams Hemmer Automatic Relationship Specialty Start Date End Date Elsewhere, Pcp PCP - General Internal Medicine 02/11/25 documented as of this encounter
--- OUTSIDE RECORDS SUMMARY | 2025-04-26 07:49 | XMS_ITS | Encounter Summary ---
Author Organization [facility] Address [address] [place] [address] Care Team Providers Care Diabetes Physician Name Role Phone Elsewhere, Pcp Primary Care Provider Unavailabl e Encounter Details Date Type Department Care Team (Latest Contact Info) Description 03/09/2025 Results Follow-Up Department of Physical Medicine and Rehabilitation in [place], [place] [address] [place] [address] Roula Proctor V., FOUNDRY WORKER GENERAL, C.N.P., D.N.P. [address] [place] [address] EMG, MR Lumbar Spine without IV Contrast Social History Tobacco Use Types Packs/Day Years [...] things needed for daily living? No 02/11/2025 [facility] Utilities Answer Date Recorded In the past 12 months has th [employer] electric, gas, oil, or water company threatened to shut off services in your home? No 02/11/2025 Housing Stability Answer Date Recorded What is your living situation today? I have a [facility] place to live 02/11/2025 Comments Unknown Sex and Gender Information Value Date Recorded Sex Assigned at Female 09/17/2018 12:21 PM MEDICAL DIRECTOR Legal Sex Female 10:57 AM MEDICAL DIRECTOR Gender Identity Female 09/17/2018 12:21 PM MEDICAL DIRECTOR Sexual Orientation Straight 09/17/2018 12 :21 PM MEDICAL DIRECTOR documented as of this encounter Miscellaneous Notes * Result Encounter Note - Roula Proctor APRN, C.N.P., D.N.P. - 03/10/2025 1:03 PM CDT Dear Ms. Alberts, The MRI of your lumbar spine showed moderate to advanced degenerative arthritic changes at multiplelevels with foraminal and canal narrowing at several levels as well. Considering your symptomatology and physical examination findings, a treatment option to consider would be a fluoroscopy-guided lumbar spine transforaminal epidural injection at L5. We will send you education materials regarding the procedure. I will also place an order for the injection, and you can call to schedule at your convenience. * Result Encounter Note - Roula Proctor APRN, C.N.P., D.N.P. - 03/09/2025 7:13 AM CDT Dear Ms. Alberts, The EMG showed that there is likely an intermittent compression involving the right L5-S1 nerve roots. I will wait to see the results of MRI of the lumbar spine, and I will message you for treatment recommendations. documented in this encounter Plan of Treatment Not on file documented as of this encounter Visit Diagnoses Not on filedocumented in this encounter Care Teams Diabetes Physician Relationship Specialty Start Date End Date Elsewhere, Pcp PCP - General Internal Medicine 02/11/25 documented as of this encounter
--- OUTSIDE RECORDS SUMMARY | 2025-04-26 07:49 | XMS_ITS | Encounter Summary ---
Author Organization [facility] Address [address] [place] [address] Care Team Providers Care Auto Radiator Specialist Name Role Phone Elsewhere, Pcp Primary Care Provider Unavailabl e Encounter Details Date Type Department Care Team (Late st Contact Info) Description 03/06/2025 Clinical Communication Department of Vascular Medicine in [place], [place] [address] [place] [address] Alin Montes De Oca M.D. [address] [place] [address] Social History Tobacco Use Types Packs/Day Years [...] things needed for daily living? No 02/11/2025 [facility] Utilities Answer Date Recorded In the past 12 months has [facility] Secured Mail, gas, oil, or water company threatened to shut off services in your home? No 02/11/2025 Housing Stability Answer Date Recorded What is your living situation today? I have a [facility] place to live 02/11/2025 Comments Unknown Sex and Gender Information Value Date Recorded Sex Assigned at Female 09/17/2018 12:21 PM JOURNALISM INSTRUCTOR Legal Sex Female 10:57 AM JOURNALISM INSTRUCTOR Gender Identity Female 09/17/2018 12:21 PM JOURNALISM INSTRUCTOR Sexual Orientation Straight 09/17/2018 12 :21 PM JOURNALISM INSTRUCTOR documented as of this encounter Plan of Treatment Not on file documented as of this encounter Visit Diagnoses Not on filedocumented in this encounter Care Teams Auto Radiator Specialist Relationship Specialty Start Date End Date Elsewhere, Pcp PCP - General Internal Medicine 02/11/25 documented as of this encounter
--- NOTE | 2025-04-26 08:01 | ED_ITS ---
HPI - Chest Pain General Time Seen by Provider: 08:01 Date Seen: 04/26/25 Chief Complaint: Chest Pain Stated Complaint: chest pain Time Seen by Provider: 04/26/25 08:00 Source: patient and RN notes reviewed Mode of arrival: ambulatory Limitations: no limitations History of Present Illness HPI narrative: This 80-year-old female was on her way to [place] when she had severe intense left-sided chest pain by her breast in into the upper abdomen, radiated over to the right axilla some. She did not notice any increased pain with breathing, no palpitations. She did not note any GI symptoms like reflux, nausea. Symptoms lasted about 20 minutes, started about 7:30 a.m.. The diverted from going to [place] to come here. She had a brief episode about 3 weeks ago, did not last as long. She does not have any cardiac history. MD complaint: chest pain Related Data Home Medications ?Medication ?Instructions ?Recorded ?Confirmed alendronate 70 mg tablet mg PO 06/24/22 02/02/25 Held on 12/27/24. Instructions: per pt. levothyroxine 88 mcg tablet mcg 06/24/22 02/02/25 pravastatin 40 mg tablet mg 06/24/22 02/02/25 famotidine 20 mg tablet 20 mg PO BID 10/17/24 B12 1,000 mcg PO QDAY replacemen t 12/27/24 04/26/25 Allergies Allergy/AdvReac Type Severity Reaction Status Date / Time No Known Drug Allergies Allergy Verified 04/26/25 07:56 Review of Systems Status of ROS Reports: 6 or more systems reviewed and unremarkable except as noted in History and below [facility] Medical History Osteoarthritis of left knee ?M17.12 - Unilateral primary osteoarthritis, left knee (ICD-10) Elevated cholesterol ?E78.00 - Pure hypercholesterolemia, unspecified (ICD-10) Hypothyroid ?E03.9 - Hypothyroidism, unspecified (ICD-10) Fracture of right distal radius ?S52.501A - Unspecified fracture of the lower end of right radius, initial encounter for closed fracture (ICD-10) Surgical History Status post total hip replacement, right ?Z96.641 - Presence of right artificial hip joint (ICD-10) History of open reduction and internal fixation (ORIF) procedure (01/17/13) ?Z98.890 - Other specified postprocedural states (ICD-10) Social History Smoking Status: Never smoker Do you use any of these nicotine containing products: None Second hand tobacco smoke exposure: No How often do you have a drink containing alcohol: monthly or less How many standard drinks containing alcohol do you have on a typical day: 1 or 2 How often do you have six or more drinks on one occasion: Never AUDIT-C Alcohol total score: 1 Non-prescribed substance use: denies use service: No Exam Const Vital Signs, click to edit/add: Vital Signs - 24 hr 04/26/25 07:52 04/26/25 08:30 04/26/25 09:00 Temperature 98.1 F Pulse Rate [Right Pulse Oximeter] 75 66 Respiratory Rate 18 16 Blood Pressure [Right Upper Arm] 112/75 123/75 Pulse Oximetry 94 93 95 Oxygen Delivery Method Room Air Room Air 04/26/25 09:00 04/26/25 09:30 Temperature Pulse Rate [Right Pulse Oximeter] 62 60 Respiratory Rate 16 16 Blood Pressure [Right Upper Arm] 134/72 148/64 H Pulse Oximetry 95 97 Oxygen Delivery Method Room Air Room Air This 80-year-old female is alert, interactive, no apparent distress. Pupils equal round reactive, sclera clear comes medical facial function. Speech is normal, able to speak in complete sentences. Lungs are clear come good air entry, no wheezing or crackles, no tachypnea, no accessory muscle use. CV regular rate and rhythm, no murmur, normal S1-S2, no S3-S4. Abdomen is soft, nontender, nondistended, no rebound or guarding, no organomegaly, no masses noted. She has no reproducible chest wall or abdominal pain at this time. She has no lower extremity edema. She was ambulatory into the ED of her own accord. Documenting provider has reviewed patient's vital signs: yes Course Course ED Course: This 80-year-old female is coming in with 2 episodes of left-sided chest pain radiating over to her right axilla. She does have known left bundle branch block but no other prior cardiac history. This certainly could be an atypical presentation of ischemic disease, will need to look at cardiac enzymes. It is also possible that this is some atypical GI presentation. We just really need to look at labs, will do a point of care troponin. If her point of care troponin is negative, think this may be more likely to be an atypical presentation of possible GI pathology and I am less likely to want to give her aspirin. Obviously for troponin is coming back elevated, will proceed with aspirin and down to the ischemic heart disease pathway. Her symptoms have resolved now. She will need to follow-up troponin as well. Will have her on pulse oximetry and cardiac monitoring looking for hypoxia or arrhythmia. Reevaluation(s) Time of Reevaluation #1: 09:08 Reevaluation #1: Reviewed with patient that her initial troponin is normal. She understands that she will need follow-up troponin, will order this for 11:00 a.m.. If she has recurrent symptoms, will recheck at that point, remains asymptomatic at this time. Time of Reevaluation #2: 09:58 Reevaluation #2: Have reviewed with patient the concerns on her chest x-ray imaging about the aorta. Her chemistries including the liver panel have all come back normal. Do think we need to consider aneurysm and dissection as possible etiologies here. She will be getting a follow-up troponin at 11:00 a.m.. She remains asymptomatic at this time, no further pain. She understands that we will be doing a CT with aortic protocol. Time of Reevaluation #3: 11:33 Reevaluation #3: Have reviewed with patient that her follow-up troponin remains normal. She has had no recurrent symptoms. We did review her CT. There is no gross vascular abnormality noted on her aorta. There were some incidental pulmonary nodules recommended for a follow-up CT, she was given a copy of the report to give to her primary so they can order a follow-up chest CT per radiology recommendations. I have recommended that she be seen in clinic to get scheduled for a cardiac stress test. In the interim, if she has return of her symptoms she should seek re-evaluation as we really do not have a definitive etiology of what her pain was. We can say that she has not had an acute heart attack at this time but this does not completely rule out the possibility of underlying cardiac disease. We have not seen any arrhythmia on monitoring here, no hypoxia on oximetry. Vital Signs Vital signs: Initial Vital Signs Temperature 98.1 F 04/26/25 07:52 Temperature Source Temporal Artery Scan 04/26/25 07:52 Pulse Rate 75 04/26/25 07:52 Pulse Rhythm Regular 04/26/25 07:52 Pulse Strength 3+ Normal 04/26/25 07:52 Respiratory Rate 18 04/26/25 07:52 Blood Pressure 112/75 04/26/25 07:52 Blood Pressure Mean 87 04/26/25 07:52 Blood Pressure Position Sitting 04/26/25 07:52 Pulse Oximetry 94 04/26/25 07:52 Oxygen Delivery Method Room Air 04/26/25 07:52 Vital Signs Temperature 98.1 F 04/26/25 07:52 Pulse Rate 75 04/26/25 07:52 Respiratory Rate 18 04/26/25 07:52 Blood Pressure 112/75 04/26/25 07:52 Pulse Oximetry 94 04/26/25 07:52 Oxygen Delivery Method Room Air 04/26/25 07:52 Temperature 98.1 F 04/26/25 07:52 Pulse Rate 60 04/26/25 09:30 Respiratory Rate 16 04/26/25 09:30 Blood Pressure 148/64 H 04/26/25 09:30 Pulse Oximetry 97 04/26/25 09:30 Oxygen Delivery Method Room Air 04/26/25 09:30 MDM - Chest Pain Lab Data Attestation: I reviewed the patient's lab results. Labs: Lab Results 04/26/25 04/26/25 Range/Units 08:15 11:01 WBC 6.59 (4.50-11.00) K/uL RBC 4.89 (4.00-5.20) m/uL Hgb 14.7 (12.0-16.0) gm/dL Hct 44.8 (33.0-51.0) % MCV 92 (80-100) fL MCH 30 (26-34) pg MCHC 33 (32-36) gm/dL RDW Coeff of Ladi 14.3 (11.5-15.5) % Plt Count 246 (140-440) K/uL Neut % (Auto) 50.3 (42.0-72.0) % Lymph % (Auto) 28.7 (20-44) % [place] % (Auto) 14.0 H (0.0-11.0) % Eos % (Auto) 5.2 (0.0-7.0) % Baso % (Auto) 1.5 (0.0-3.0) % Neut # (Auto) 3.32 (1.7-7.0) K/uL Lymph # (Auto) 1.89 (0.90-2.90) K/uL [place] # (Auto) 0.90 (0.00-0.90) K/UL Eos # (Auto) 0.34 (0.00-0.50) K/uL Baso # (Auto) 0.10 (0.00-0.30) K/uL Abs Immat Gran (auto) 0.02 (0.00-0.30) K/uL Imm/Tot Granulo (auto) 0.3 % Sodium 137 (135-149) mmol/L Potassium 3.7 (3.6-5.1) mmol/L Chloride 104 (96-114) mmol/L Carbon Dioxide 30 (20-32) mmol/L Anion Gap 3 L (7-15) mEq/L BUN 16 (7-30) mg/dL Creatinine 0.6 (0.5-1.5) mg/dL Estimated Creat Clear 38.10 Estimated GFR 90 ml/min Glucose 108 (60-115) mg/dL Lactate 0.9 (0.5-1.9) mmol/L Calcium 8.8 (8.4-10.6) mg/dL Magnesium 2.2 (1.5-2.6) mg/dL Total Bilirubin 0.7 (0.1-1.5) mg/dL Direct Bilirubin 0.1 (0.0-0.5) mg/dL AST 24 (12-35) U/L ALT 19 (4-35) U/L Alkaline Phosphatase 53 (40-150) U/L Troponin I < 0.01 (0.01-0.04) ng/mL C-Reactive Protein < 0.5 L (0.5-1.0) mg/dL NT-Pro-B Natriuret Pep 76 (See Note) pg/mL Total Protein 7.1 (6.0-8.3) g/dL Albumin 4.0 (3.3-5.0) g/dL Lipase 45 (23-300) U/L POC Troponin I 0.00 L 0.00 L (0.01-0.04) ng/ml Imaging Data Chest x-ray: Attestation: I have reviewed the pertinent imaging results. My impression: I do not appreciate any infiltrate, no fluid overload on my preliminary review of her chest imaging, no acute pathology to suggest etiology of my preliminary review, await Radiology over-read. Radiologist's impression: Patient: [facility] Facility:?[facility] Patient ID:?[id number] Site Patient ID:?[id number]. Site :?[id number] Study:?XRay-Chest PCXR-04/26/2025 8:29:11 AM Ordering Physician:?Meena Ulrich Final Report: INDICATION: Chest pain. TECHNIQUE: Chest 1 views. COMPARISON: 03/22/2024. FINDINGS: Prominent interstitial markings are noted without overt pulmonary edema. No significant pleural effusion. No pneumothorax. Tortuous and likely ectatic thoracic aorta appears to be increasing callus compared to the prior. Heart is normal in size. IMPRESSION: 1. Apparent increase in size of a tortuous and likely ectatic thoracic aorta compared to 03/22/2024, possibly due to differences in technique. A chest CT with IV contrast is recommended if clinical concern for acute aortic syndrome. Dictated by Jhonny Meraz MD @ 04/26/2025 8:33:12 AM (Electronic Signature) CT- Other: Attestation: I have reviewed the pertinent imaging results. Radiologist's impression: Patient: [facility] Facility:?[facility] Patient ID:?[id number] Site Patient ID:?[id number]. Site :?1945 Study:?CT-Chest/Abd/Pelvis Angio W/ 95CC ISOVUE-370 AORTIC -04/26/2025 10:21:45 AM Ordering Physician:?Meena Ulrich Final Report: INDICATION: Chest pain. Evaluate for acute aortic syndrome.. TECHNIQUE: CT chest without contrast and CT chest, abdomen and pelvis acquired with 100 cc Omnipaque 350 IV contrast, dissection protocol. Coronal and MIP reconstructions were performed. COMPARISON: None. FINDINGS: There is motion within the aortic root with limits evaluation. No definite evidence dissection. The thoracic aorta is nonaneurysmal. There is fluid within the pericardial recesses without gross evidence of stranding. Patent three- vessel arch is present without significant stenosis. Pulmonary vasculature is not well opacified. The abdominal aorta is normal in caliber. There is mild stenosis of the celiac artery with J-shaped configuration which can be seen the setting of chronic median arcuate ligament syndrome. The superior mesenteric, renal and inferior mesenteric arteries are patent without significant stenosis. The iliac arteries visualized femoral arteries are patent without significant stenosis. CHEST: There is ground-glass within the medial basilar right lower lobe, likely atelectasis or scarring. Mild dependent ground-glass is noted within the lower lobes which likely represents scarring as well. No pulmonary edema. No consolidation. Mild biapical scarring. 4 millimeter right upper lobe nodule (series 5, image 50). 6 millimeter pleural left upper lobe nodule) 22). No mediastinal or hilar lymphadenopathy. The heart is normal in size. No significant coronary calcification. No effusion. No axillary lymphadenopathy. No chest wall mass. Bone windows demonstrate no fracture. ABDOMEN AND PELVIS: Hepatic steatosis is present. A small cyst is seen within the left cristian liver. The gallbladder is partially distended. No gross biliary ductal dilatation. Spleen is unremarkable. The pancreas is unremarkable. Adrenal glands are unremarkable. The kidneys are without hydronephrosis or perinephric stranding. Tiny right renal cyst is demonstrated. The urinary bladder is partially obscured by streak artifact from a right hip arthroplasty. Extensive sigmoid diverticulosis. No CT evidence of acute diverticulitis. Stool throughout the remainder of the colon which appears nondilated. The appendix is nondilated. The stomach is partially distended. There is thickening of the distal stomach, likely due to underdistention. The small bowel is nondilated. No free air. No ascites. No organized drainable fluid collection. No lymphadenopathy. The uterus is partially obscured by streak artifact. Right hip arthroplasty is noted. Osteopenia is seen. No acute fracture. IMPRESSION: 1. Evaluation of the ascending aorta is limited by motion artifact. No gross CT evidence of acute aortic syndrome. 2. Mild dependent pulmonary ground-glass, likely atelectasis or scarring. 3. Pulmonary nodules measuring up to 6 millimeters. Follow-up chest CT may be performed in 6-12 months. 4. Sigmoid diverticulosis without CT evidence of acute diverticulitis. Please note that all CT scans at this facility use dose modulation, iterative reconstruction, and/or weight-based dosing when appropriate to reduce radiation dose to as low as reasonably achievable. Dictated by Jhonny Meraz MD @ 04/26/2025 10:37:53 AM (Electronic Signature) ECG Data Attestation: I personally reviewed and interpreted this ECG as follows: (Sinus rhythm, 71 beats per minute. Left bundle branch block.) ECG interpretation date: 04/26/25 ECG interpretation time: 08:10 Prior ECG tracings: available for review (Prior left bundle branch block known.) Discharge Plan Discharge Clinical Impression: Chest pain, Pulmonary nodule Patient Disposition: Home, Self-Care Condition: Stable Instructions: Chest Pain (ED), Pulmonary Nodules (ED) Additional Instructions: Need to contact Dr. Monaco and get scheduled for cardiac stress test through her. You also need to provide her a copy of the CT report so she can order follow-up chest CT imaging of the pulmonary nodules. In the meantime, if you have recurrent symptoms, return to the ER as we do not no the definite etiology for your symptoms. Activity Level: Activity as Tolerated Prescriptions: No Action pravastatin 40 mg tablet Patient Comments: Take 1 Tablet (40 mg) by mouth at bedtime. Take with 20 mg tablet for total of 60 mg at bedtime. alendronate 70 mg tablet PO Patient Comments: Take 1 Tablet (70 mg) by mouth once a week in the morning. TAKE ON EMPTY STOMACH WITH FULL GLASS OF WATER. DO NOT LIE DOWN FOR 1 HOUR. levothyroxine 88 mcg tablet Patient Comments: TAKE ONE TABLET BY MOUTH ONE TIME DAILY famotidine 20 mg tablet 20 mg PO BID B12 1,000 mcg tablet 1,000 mcg PO QDAY Follow Up/Referrals: Ksenia Monaco MD [Primary Care Provider, Family Practice] Stand Alone Forms: [employer] Info Instructions
--- NOTE | 2025-04-26 08:06 | CRLHL7_ITS ---
For Patients: As a result of the Century Cures Act, medical imaging exams and procedure reports are released immediately into your electronic medical record. You may view this report before your referring provider. If you have questions, please contact your health care provider. INDICATION: Chest pain. TECHNIQUE: Chest 1 views. COMPARISON: 03/22/2024. FINDINGS: Prominent interstitial markings are noted without overt pulmonary edema. No significant pleural effusion. No pneumothorax. Tortuous and likely ectatic thoracic aorta appears to be increasing callus compared to the prior. Heart is normal in size. IMPRESSION: 1. Apparent increase in size of a tortuous and likely ectatic thoracic aorta compared to 03/22/2024, possibly due to differences in technique. A chest CT with IV contrast is recommended if clinical concern for acute aortic syndrome. Dictated by Jhonny Meraz MD @ 04/26/2025 8:33:12 AM (Electronically Signed)
[2025-04-26 08:26] LABS: Lactate* 0.9 mmol/L (0.5-1.9)
[2025-04-26 08:27] LABS: Hematocrit* 44.8 % (33.0-51.0); Hemoglobin* 14.7 gm/dL (12.0-16.0); Immature Granulocytes Abs Auto 0.02 K/uL (0.00-0.30); Immature Granulocytes Pct Auto 0.3 %; Lymphocytes Absolute Auto 1.89 K/uL (0.90-2.90); Mean Corpuscular HGB Conc 33 gm/dL (32-36); Mean Corpuscular Hemoglobin 30 pg (26-34); Mean Corpuscular Volume 92 fL (80-100); RDW Coefficient of Variation % 14.3 % (11.5-15.5); Red Blood Count* 4.89 m/uL (4.00-5.20); White Blood Count* 6.59 K/uL (4.50-11.00)
[2025-04-26 08:28] LABS: Slide Review Reflex No
[2025-04-26 08:42] LABS: Troponin, Point-of-Care* 0.00 ng/ml (0.01-0.04)
[2025-04-26 09:18] LABS: Albumin* 4.0 g/dL (3.3-5.0); Chloride* 104 mmol/L (96-114); Sodium* 137 mmol/L (135-149)
[2025-04-26 09:19] LABS: Potassium* 3.7 mmol/L (3.6-5.1)
[2025-04-26 09:21] LABS: Anion Gap 3 mEq/L (7-15); Blood Urea Nitrogen* 16 mg/dL (7-30); Carbon Dioxide* 30 mmol/L (20-32); Creatinine* 0.6 mg/dL (0.5-1.5); Est. Creatinine Clearance* 38.10; Estimated Glomerular Filt Rate 90 ml/min
[2025-04-26 09:22] LABS: Alanine Aminotransferase* 19 U/L (4-35); Alkaline Phosphatase* 53 U/L (40-150); Aspartate Amino Transferase* 24 U/L (12-35); Bilirubin Direct* 0.1 mg/dL (0.0-0.5); Bilirubin Total* 0.7 mg/dL (0.1-1.5); Calcium* 8.8 mg/dL (8.4-10.6); Glucose* 108 mg/dL (60-115); Total Protein* 7.1 g/dL (6.0-8.3)
[2025-04-26 09:44] LABS: NT Pro B Type NatriureticPept* 76 pg/mL (See Note)
--- NOTE | 2025-04-26 09:56 | CRLHL7_ITS ---
For Patients: As a result of the 21st Century Cures Act, medical imaging exams and procedure reports are released immediately into your electronic medical record. You may view this report before your referring provider. If you have questions, please contact your health care provider. INDICATION: Chest pain. Evaluate for acute aortic syndrome.. TECHNIQUE: CT chest without contrast and CT chest, abdomen and pelvis acquired with 100 cc Omnipaque 350 IV contrast, dissection protocol. Coronal and MIP reconstructions were performed. COMPARISON: None. FINDINGS: There is motion within the aortic root with limits evaluation. No definite evidence dissection. The thoracic aorta is nonaneurysmal. There is fluid within the pericardial recesses without gross evidence of stranding. Patent three-vessel arch is present without significant stenosis. Pulmonary vasculature is not well opacified. The abdominal aorta is normal in caliber. There is mild stenosis of the celiac artery with J-shaped configuration which can be seen the setting of chronic median arcuate ligament syndrome. The superior mesenteric, renal and inferior mesenteric arteries are patent without significant stenosis. The iliac arteries visualized femoral arteries are patent without significant stenosis. CHEST: There is ground-glass within the medial basilar right lower lobe, likely atelectasis or scarring. Mild dependent ground-glass is noted within the lower lobes which likely represents scarring as well. No pulmonary edema. No consolidation. Mild biapical scarring. 4 millimeter right upper lobe nodule (series 5, image 50). 6 millimeter pleural left upper lobe nodule) 22). No mediastinal or hilar lymphadenopathy. The heart is normal in size. No significant coronary calcification. No effusion. No axillary lymphadenopathy. No chest wall mass. Bone windows demonstrate no fracture. ABDOMEN AND PELVIS: Hepatic steatosis is present. A small cyst is seen within the left cristian liver. The gallbladder is partially distended. No gross biliary ductal dilatation. Spleen is unremarkable. The pancreas is unremarkable. Adrenal glands are unremarkable. The kidneys are without hydronephrosis or perinephric stranding. Tiny right renal cyst is demonstrated. The urinary bladder is partially obscured by streak artifact from a right hip arthroplasty. Extensive sigmoid diverticulosis. No CT evidence of acute diverticulitis. Stool throughout the remainder of the colon which appears nondilated. The appendix is nondilated. The stomach is partially distended. There is thickening of the distal stomach, likely due to underdistention. The small bowel is nondilated. No free air. No ascites. No organized drainable fluid collection. No lymphadenopathy. The uterus is partially obscured by streak artifact. Right hip arthroplasty is noted. Osteopenia is seen. No acute fracture. IMPRESSION: 1. Evaluation of the ascending aorta is limited by motion artifact. No gross CT evidence of acute aortic syndrome. 2. Mild dependent pulmonary ground-glass, likely atelectasis or scarring. 3. Pulmonary nodules measuring up to 6 millimeters. Follow-up chest CT may be performed in 6-12 months. 4. Sigmoid diverticulosis without CT evidence of acute diverticulitis. Please note that all CT scans at this facility use dose modulation, iterative reconstruction, and/or weight-based dosing when appropriate to reduce radiation dose to as low as reasonably achievable. Dictated by Jhonny Meraz MD @ 04/26/2025 10:37:53 AM (Electronically Signed)
[2025-04-26 11:24] LABS: Troponin, Point-of-Care* 0.00 ng/ml (0.01-0.04)
== END 2025-04-26 12:00 | disposition home or self-care (01) ==
PROVIDERS: Emergency Provider Family Medicine; PCP Family Medicine
DX: R07.9 Chest pain, unspecified (principal); R06.02 Shortness of breath; R91.1 Solitary pulmonary nodule
CPT/HCPCS: 36415; 71045; 71275; 74174; 80053; 82248; 83605; 83690; 83735; 83880; 84484; 85025; 86140; 93005; 94761; 99285; Q9967

== ENCOUNTER 2025-06-15 09:00 | Outpatient (RCR) | payer MEDICARE, OTHER, SELFPAY | END 2025-06-15 10:03 | disposition home or self-care (01) | PROVIDERS: PCP Family Medicine; Visit Provider Registered Nurse Ambulatory Care | DX: M54.50 Low back pain, unspecified (principal); Z51.89 Encounter for other specified aftercare | CPT/HCPCS: 97110; 97140; 97161 ==